=== PATIENT | female | born 1935 | race Caucasian/White ===

== ENCOUNTER 2020-04-11 18:59 | Observation (INO) | payer MEDICARE, BC ==
[2020-04-11] MEDS ORDERED: Sodium Chloride 0.9% 10 ML Syringe FLUSH PRN (19:18)
[2020-04-11] MEDS ORDERED: Sodium Chloride 0.9% 2.5 ML Syringe FLUSH PRN (19:18)
[2020-04-11] MEDS ORDERED: Furosemide 40 MG/4 ML VIAL IVPUSH ONE (19:46)
--- NOTE | 2020-04-11 20:00 | CR ---
INDICATION: Shortness of breath TECHNIQUE: Chest radiograph 1 view COMPARISON: 03/24/2008 FINDINGS: Moderate degradation of image quality noted due to body habitus. Mediastinum: The mediastinum is normal in appearance. Mild cardiomegaly is present. Patient status post median sternotomy. Lung: Moderate diffuse reticulonodular infiltrates, and septal thickening noted bilaterally. Consolidation in the left lung base is noted with mild volume loss. Small bilateral pleural effusions are present. No pneumothorax is identified. Bone and Soft tissue: Neurostimulator leads are seen overlying the inferior thoracic spine. Left axillary dissection clips are noted without change. IMPRESSIONS: 1. Moderate diffuse reticulonodular infiltrates, and septal thickening noted bilaterally. Likely due to pulmonary edema. 2. Consolidation in the left lung base is noted with mild volume loss. These findings can be seen with atelectasis and/or pneumonia. 3. Small bilateral pleural effusions are present. Dictated by Parish Katz MD @ 04/11/2020 7:59:10 PM Dictated by: Parish Katz MD @ 04/11/2020 19:59:14 (Electronically Signed)
[2020-04-11 20:12] LABS: BLOOD UREA NITROGEN,BUN 21 mg/dL (7.0-18.0); CARBON DIOXIDE,CO2 27.7 mmol/L (21.0-32.0); CHLORIDE,CL 99 mmol/L (98-107); GLUCOSE RANDOM 170 mg/dL (74-106); LIPASE 92 U/L (73-393); POTASSIUM,K 3.7 mmol/L (3.5-5.1); SODIUM,NA 136 mmol/L (136-145)
--- NOTE | 2020-04-11 20:46 | EDM.PDOC ---
<Kameron Hairston - Last Filed: 04/12/20 06:46> ED HPI GENERAL MEDICAL PROBLEM - General Chief Complaint: Respiratory Problem Stated Complaint: SOB Time Seen by Provider: 04/11/20 19:18 - Related Data Allergies Allergy/AdvReac Type Severity Reaction Status Date / Time carbamazepine [From Tegretol] Allergy Rash Verified 04/12/20 01:16 Home Meds: Home Meds Calcium Carb, Citrate/Vit D3 [Citracal + D ER] 1 tab PO DAILY 11/01/14 [History] Levothyroxine Sodium [Synthroid] 100 mcg PO DAILY 11/01/14 [History] Losartan Potassium [Cozaar] 100 mg PO DAILY 11/01/14 [History] Magnesium 200 mg PO DAILY 11/01/14 [History] Metoprolol Tartrate 100 mg PO BID 11/01/14 [History] Multivitamin [Multivitamins] 1 tab PO DAILY 11/01/14 [History] Zolpidem Tartrate 10 mg PO BEDTIME PRN 11/01/14 [History] amLODIPine [Norvasc] 5 mg PO DAILY 11/01/14 [History] atorvaSTATin Calcium [Atorvastatin Calcium] 20 mg PO BEDTIME 11/01/14 [History] Bifidobacter. Bifidum/B.Longum [Florajen Bifidoblend] 460 mg PO DAILY 06/10/15 [History] Apixaban [Eliquis] 5 mg PO BID 04/12/20 [History] Cholecalciferol (Vitamin D3) [Vitamin D3] 1,000 unit PO DAILY 04/12/20 [History] Omeprazole 20 mg PO DAILY 04/12/20 [History] Zinc 50 mg PO DAILY 04/12/20 [History] Acetaminophen [Tylenol] 650 mg PO Q6H PRN tablet 04/14/20 [Rx] Chlorthalidone 12.5 mg PO DAILY 30 Days #14 tab 04/14/20 [Rx] Furosemide [Lasix] 40 mg PO DAILY 30 Days #30 tab 04/14/20 [Rx] Potassium Chloride [Klor-Con M20] 20 meq PO DAILY 30 Days #30 tab.er 04/14/20 [Rx] #1 Interpretation EKG Interpretation Comments: EKG: As interpreted by ER physician: Marika: Nonspecific ST-T wave abnormalities Left bundle branch block Left axis deviation No evidence of ST elevation NC Atrial fibrillation heart rate of 125 Departure - Departure Time of Disposition: 23:00 Disposition: Refer to Observation Clinical Impression: Pulmonary edema Qualifiers: Chronicity: acute Qualified Code(s): J81.0 - Acute pulmonary edema Respiratory failure with hypoxia Qualifiers: Chronicity: acute Qualified Code(s): J96.01 - Acute respiratory failure with hypoxia CHF (congestive heart failure) Qualifiers: Heart failure type: unspecified Heart failure chronicity: acute on chronic Qualified Code(s): I50.9 - Heart failure, unspecified - Discharge Information <Jaylin Tenorio - Last Filed: 04/15/20 10:24> ED HPI GENERAL MEDICAL PROBLEM - General Source of Information: Reports: Patient History Limitations: Reports: No Limitations - History of Present Illness INITIAL COMMENTS - FREE TEXT/NARRATIVE: HISTORY AND PHYSICAL: History of present illness: Patient is an 84-year-old female who presents emergency room today with concern of shortness of breath that began this morning at about 5 AM. Patient states that when she woke up at 5 AM this morning, she was having a harder time catching her breath. Patient states throughout the course of today, it has worsened so she called EMS to bring her to the emergency room. Patient states this happened about 3 to 4 weeks ago when she was a [place] and states that she was told "she has water around her heart "and states that she was sent home and increase the dose of her medication. Patient states she is unsure the name of the medication and what dose she is taking. Patient states she began having the same symptoms again today and her medication that she has been taking was not working. She states 3 to 4 weeks ago she was tested for Covid at that time and it was negative. Patient states she does have a history of thoracic and abdominal aortic aneurysm repair in 2007 and states that she has not had any complications following the surgery from this. Patient states she has a history of hypertension, atrial fibrillation, and hyperlipidemia. Patient denies fever, chills, chest pain, or cough. Denies headache, neck stiff ness, change in vision, syncope, or near syncope. Denies nausea, vomiting, abdominal pain, diarrhea, constipation, or dysuria. Has not noted any blood in urine or stool. Patient has been eating and drinking appropriately. Review of systems: As per history of present illness and below otherwise all systems reviewed and negative. Past medical history: As per history of present illness and as reviewed below otherwise no ncontributory. Surgical history: As per history of present illness and as reviewed below otherwise noncontributory. Social history: See social history for further information Family history: As per history of present illness and as reviewed below otherwise noncontributory. Physical exam: General: Patient is alert, oriented, and in respiratory distress. Patient tachypneic with use of accessory muscles for breathing, on 15L non-rebreather at bedside per EMS at 90%, HR 120s, bp 140s/80s. HEENT: Atraumatic, normocephalic, pupils equal and reactive bilaterally, negative for conjunctival pallor or scleral icterus, mucous membranes moist, TMs normal bilaterally, throat clear, neck supple, nontender, trachea midline. No drooling or trismus noted. No meningeal signs. No hot potato voice noted. Lungs: Course crackles throughout all lung hansen to auscultation, breath sounds equal bilaterally, chest nontender. Patient speaking 1-2 word sentences with breathlessness, no wheezing, no stridor, using accessory muscles in respiratory distress. Heart: Heart sounds limited due to lung sounds. Otherwise, S1S2, regular rate and rhythm without overt murmur Abdomen: Soft, nondistended, nontender. Negative for masses or hepatosplenomegaly. Negative for costovertebral tenderness. Pelvis: Stable nontender. Genitourinary: Deferred. Rectal: Deferred. Skin: Intact, warm, dry. No lesions or rashes noted. Extremities: 1+ bilateral pitting edema to the knees. Otherwise, atraumatic, negative for cords or calf pain. Neurovascular unremarkable. Neuro: Awake, alert, oriented. Cranial nerves II through XII unremarkable. Cerebellum unremarkable. Motor and sensory unremarkable throughout. Exam nonfocal. Notes: Upon initial exam, patient does appear to be in acute respiratory distress. She is 90% on 15 L nonrebreather. I did call the respiratory therapist to get BiPAP initiated. Respiratory therapist shortly at bedside with BiPAP machine. Upon reevaluation of patient on BIPAP, she is much more comfortable, tachypnea improved, oxygen 96% and HR 80bmp. I did call and speak to Dr. Cheng, hospitalist military professional, and thoroughly discussed patients case. Will admit to observation telemetry. Voices understanding and is agreeable to plan of care. Denies any further questions or concerns at this time. Diagnostics: EKG, CBC, CMP, UA, CXR, Trop, Chest/Abd/Pelvis chest ct w cont, lactate, blood cultures x 2, COVID/Flu, BNP Therapeutics: Saline lock, BIPAP, Lasix Impression: Respiratory failure with hypoxia Pulmonary edema Congestive Heart Failure exacerbation Plan: Admit to observation to Dr. Cheng Critical care time is exclusive of billable procedures and the time to perform these procedures. Critical care time was used to prevent vital system organ failure and deterioration. Critical care time includes bedside management and high-complexity decision making requiring my highest level of mental preparedness and attention. This includes reviewing the patient's chart and prior medical records, ordering and reviewing interpreting laboratory studies and imaging results, interpretation of vital signs and EKG, pulse oximetry, and discussion with the admitting team along with nursing staff. Patient presented with acute respiratory failure requiring immediate intervention requiring Bipap and transfer to the hospital for additional close monitoring and continuation of treatment CC Time: 30 minutes Definitive disposition and diagnosis as appropriate pending reevaluation and review of above. 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 ED EXAM, GENERAL - Physical Exam Exam: See Below (see dictation) Course - Vital Signs Last Recorded V/S: Last Vital Signs Temp 97.7 F 04/14/20 11:43 Pulse 83 04/14/20 11:43 Resp 20 04/14/20 11:43 BP 124/59 L 04/14/20 11:43 Pulse Ox 95 04/14/20 11:43 - Orders/Labs/Meds Labs: Laboratory Tests 04/11/20 04/11/20 04/11/20 Range/Units 19:30 19:30 19:30 WBC 9.89 (4.0-11.0) K/uL RBC 4.17 L (4.30-5.90) M/uL Hgb 12.1 (12.0-16.0) g/dL Hct 38.1 (36.0-46.0) % MCV 91.4 (80.0-98.0) fL MCH 29.0 (27.0-32.0) pg MCHC 31.8 (31.0-37.0) g/dL RDW Std Deviation 47.4 (28.0-62.0) fl RDW Coeff of José 14 (11.0-15.0) % Plt Count 217 (150-400) K/uL MPV 10.80 (7.40-12.00) fL Neut % (Auto) 59.9 (48.0-80.0) % Lymph % (Auto) 27.8 (16.0-40.0) % [place] % (Auto) 8.3 (0.0-15.0) % Eos % (Auto) 3.4 (0.0-7.0) % Baso % (Auto) 0.6 (0.0-1.5) % Neut # (Auto) 5.9 H (1.4-5.7) K/uL Lymph # (Auto) 2.8 H (0.6-2.4) K/uL [place] # (Auto) 0.8 (0.0-0.8) K/uL Eos # (Auto) 0.3 (0.0-0.7) K/uL Baso # (Auto) 0.1 (0.0-0.1) K/uL Nucleated RBC % 0.0 /100WBC Nucleated RBCs # 0 K/uL ABG pH (7.35-7.45) ABG pCO2 (35-45) mmHG ABG pO2 (75-100) mmHG ABG HCO3 (22-26) mEq/L ABG Total CO2 ABG Base Excess (-2.0-2.0) VBG pH (7.31-7.41) VBG pCO2 (35-45) mmHG VBG pO2 (30-40) mmHG VBG HCO3 (22-30) mEq/L VBG Total CO2 (41-51) mmol/L VBG Base Excess (-3.0-3.0) Lactate 1.3 (0.20-2.00) mmol/L Sodium 136 (136-145) mmol/L Potassium 3.7 (3.5-5.1) mmol/L Chloride 99 (98-107) mmol/L Carbon Dioxide 27.7 (21.0-32.0) mmol/L BUN 21 H (7.0-18.0) mg/dL Creatinine 1.2 H (0.6-1.0) mg/dL Est Cr Clr Drug Dosing 34.54 mL/min Estimated GFR (MDRD) 42.9 ml/min Glucose 170 H (74-106) mg/dL Calcium 9.1 (8.5-10.1) mg/dL Total Bilirubin 0.6 (0.2-1.0) mg/dL AST 23 (15-37) IU/L ALT 25 (14-63) IU/L Alkaline Phosphatase 118 H (46-116) U/L Troponin I < 0.050 (0.000-0.056) ng/mL B-Natriuretic Peptide (<100) PG/ML Total Protein 7.5 (6.4-8.2) g/dL Albumin 3.7 (3.4-5.0) g/dL Globulin 3.8 (2.6-4.0) g/dL Albumin/Globulin Ratio 1.0 (0.9-1.6) Lipase 92 (73-393) U/L Urine Color Urine Appearance Urine pH (5.0-8.0) Ur Specific [place] (1.001-1.035) Urine Protein (NEGATIVE) mg/dL Urine Glucose (UA) (NEGATIVE) mg/dL Urine Ketones (NEGATIVE) mg/dL Urine Occult Blood (NEGATIVE) Urine Nitrite (NEGATIVE) Urine Bilirubin (NEGATIVE) Urine Urobilinogen (<2.0) EU/dL Ur Leukocyte Esterase (NEGATIVE) Urine RBC (0-2/HPF) Urine WBC (0-5/HPF) Ur Epithelial Cells (NONE-FEW) Urine Bacteria (NEGATIVE) Urine Mucus (NONE-MOD) Influenza Type A RNA (NEGATIVE) Influenza Type B RNA (NEGATIVE) SARS-CoV-2 RNA (DINO) (NEGATIVE) 04/11/20 04/11/20 04/11/20 Range/Units 19:30 19:30 19:47 WBC (4.0-11.0) K/uL RBC (4.30-5.90) M/uL Hgb (12.0-16.0) g/dL Hct (36.0-46.0) % MCV (80.0-98.0) fL MCH (27.0-32.0) pg MCHC (31.0-37.0) g/dL RDW Std Deviation (28.0-62.0) fl RDW Coeff of José (11.0-15.0) % Plt Count (150-400) K/uL MPV (7.40-12.00) fL Neut % (Auto) (48.0-80.0) % Lymph % (Auto) (16.0-40.0) % [place] % (Auto) (0.0-15.0) % Eos % (Auto) (0.0-7.0) % Baso % (Auto) (0.0-1.5) % Neut # (Auto) (1.4-5.7) K/uL Lymph # (Auto) (0.6-2.4) K/uL [place] # (Auto) (0.0-0.8) K/uL Eos # (Auto) (0.0-0.7) K/uL Baso # (Auto) (0.0-0.1) K/uL Nucleated RBC % /100WBC Nucleated RBCs # K/uL ABG pH 7.405 (7.35-7.45) ABG pCO2 41 (35-45) mmHG ABG pO2 77 (75-100) mmHG ABG HCO3 26 (22-26) mEq/L ABG Total CO2 23.4 ABG Base Excess 0.8 (-2.0-2.0) VBG pH 7.35 (7.31-7.41) VBG pCO2 49 H (35-45) mmHG VBG pO2 41 H (30-40) mmHG VBG HCO3 27 (22-30) mEq/L VBG Total CO2 25 L (41-51) mmol/L VBG Base Excess 1.1 (-3.0-3.0) Lactate (0.20-2.00) mmol/L Sodium (136-145) mmol/L Potassium (3.5-5.1) mmol/L Chloride (98-107) mmol/L Carbon Dioxide (21.0-32.0) mmol/L BUN (7.0-18.0) mg/dL Creatinine (0.6-1.0) mg/dL Est Cr Clr Drug Dosing mL/min Estimated GFR (MDRD) ml/min Glucose (74-106) mg/dL Calcium (8.5-10.1) mg/dL Total Bilirubin (0.2-1.0) mg/dL AST (15-37) IU/L ALT (14-63) IU/L Alkaline Phosphatase (46-116) U/L Troponin I (0.000-0.056) ng/mL B-Natriuretic Peptide 1146 H (<100) PG/ML Total Protein (6.4-8.2) g/dL Albumin (3.4-5.0) g/dL Globulin (2.6-4.0) g/dL Albumin/Globulin Ratio (0.9-1.6) Lipase (73-393) U/L Urine Color Urine Appearance Urine pH (5.0-8.0) Ur Specific [place] (1.001-1.035) Urine Protein (NEGATIVE) mg/dL Urine Glucose (UA) (NEGATIVE) mg/dL Urine Ketones (NEGATIVE) mg/dL Urine Occult Blood (NEGATIVE) Urine Nitrite (NEGATIVE) Urine Bilirubin (NEGATIVE) Urine Urobilinogen (<2.0) EU/dL Ur Leukocyte Esterase (NEGATIVE) Urine RBC (0-2/HPF) Urine WBC (0-5/HPF) Ur Epithelial Cells (NONE-FEW) Urine Bacteria (NEGATIVE) Urine Mucus (NONE-MOD) Influenza Type A RNA (NEGATIVE) Influenza Type B RNA (NEGATIVE) SARS-CoV-2 RNA (DINO) (NEGATIVE) 04/11/20 04/11/20 Range/Units 21:19 21:30 WBC (4.0-11.0) K/uL RBC (4.30-5.90) M/uL Hgb (12.0-16.0) g/dL Hct (36.0-46.0) % MCV (80.0-98.0) fL MCH (27.0-32.0) pg MCHC (31.0-37.0) g/dL RDW Std Deviation (28.0-62.0) fl RDW Coeff of José (11.0-15.0) % Plt Count (150-400) K/uL MPV (7.40-12.00) fL Neut % (Auto) (48.0-80.0) % Lymph % (Auto) (16.0-40.0) % [place] % (Auto) (0.0-15.0) % Eos % (Auto) (0.0-7.0) % Baso % (Auto) (0.0-1.5) % Neut # (Auto) (1.4-5.7) K/uL Lymph # (Auto) (0.6-2.4) K/uL [place] # (Auto) (0.0-0.8) K/uL Eos # (Auto) (0.0-0.7) K/uL Baso # (Auto) (0.0-0.1) K/uL Nucleated RBC % /100WBC Nucleated RBCs # K/uL ABG pH (7.35-7.45) ABG pCO2 (35-45) mmHG ABG pO2 (75-100) mmHG ABG HCO3 (22-26) mEq/L ABG Total CO2 ABG Base Excess (-2.0-2.0) VBG pH (7.31-7.41) VBG pCO2 (35-45) mmHG VBG pO2 (30-40) mmHG VBG HCO3 (22-30) mEq/L VBG Total CO2 (41-51) mmol/L VBG Base Excess (-3.0-3.0) Lactate (0.20-2.00) mmol/L Sodium (136-145) mmol/L Potassium (3.5-5.1) mmol/L Chloride (98-107) mmol/L Carbon Dioxide (21.0-32.0) mmol/L BUN (7.0-18.0) mg/dL Creatinine (0.6-1.0) mg/dL Est Cr Clr Drug Dosing mL/min Estimated GFR (MDRD) ml/min Glucose (74-106) mg/dL Calcium (8.5-10.1) mg/dL Total Bilirubin (0.2-1.0) mg/dL AST (15-37) IU/L ALT (14-63) IU/L Alkaline Phosphatase (46-116) U/L Troponin I (0.000-0.056) ng/mL B-Natriuretic Peptide (<100) PG/ML Total Protein (6.4-8.2) g/dL Albumin (3.4-5.0) g/dL Globulin (2.6-4.0) g/dL Albumin/Globulin Ratio (0.9-1.6) Lipase (73-393) U/L Urine Color YELLOW Urine Appearance CLEAR Urine pH 6.0 (5.0-8.0) Ur Specific [place] 1.015 (1.001-1.035) Urine Protein 30 H (NEGATIVE) mg/dL Urine Glucose (UA) NEGATIVE (NEGATIVE) mg/dL Urine Ketones NEGATIVE (NEGATIVE) mg/dL Urine Occult Blood SMALL H (NEGATIVE) Urine Nitrite NEGATIVE (NEGATIVE) Urine Bilirubin NEGATIVE (NEGATIVE) Urine Urobilinogen 0.2 (<2.0) EU/dL Ur Leukocyte Esterase TRACE H (NEGATIVE) Urine RBC 0-1 (0-2/HPF) Urine WBC 0-3 (0-5/HPF) Ur Epithelial Cells RARE (NONE-FEW) Urine Bacteria FEW (NEGATIVE) Urine Mucus LIGHT (NONE-MOD) Influenza Type A RNA NEGATIVE (NEGATIVE) Influenza Type B RNA NEGATIVE (NEGATIVE) SARS-CoV-2 RNA (DINO) NEGATIVE (NEGATIVE) Meds: Medications Discontinued Medications Generic Name Dose Route Start Last Admin Trade Name Freq PRN Reason Stop Dose Admin Acetaminophen 650 mg 04/12/20 01:42 04/14/20 00:03 Tylenol PO 650 mg Q6H PRN Administration Pain Albuterol/Ipratropium 3 ml 04/12/20 01:40 Duoneb 3.0-0.5 Mg/3 Ml NEB Q4HRRT PRN Shortness of Breath Amlodipine Besylate 5 mg 04/13/20 09:00 04/14/20 08:50 Norvasc PO 5 mg DAILY BERT Administration Apixaban 5 mg 04/12/20 21:00 04/14/20 08:50 Eliquis PO 5 mg BID BERT Administration Diltiazem HCl 20 mg 04/12/20 21:46 Diltiazem IVPUSH Q4H PRN HR >120 Furosemide 40 mg 04/11/20 19:46 04/11/20 20:03 Lasix IVPUSH 04/11/20 19:47 40 mg NOW ONE Administration Furosemide 40 mg 04/12/20 04:00 04/14/20 06:59 Lasix IVPUSH 40 mg Q8HR BERT Administration Magnesium Sulfate 2 gm in 50 mls @ 100 mls/hr 04/12/20 09:00 04/12/20 09:56 Magnesium Sulfate In Water Premix IV 04/12/20 09:29 100 mls/hr ONETIME ONE Administration Iopamidol 50 ml 04/11/20 21:28 04/11/20 21:30 Isovue Multipack-370 (76%) IVPUSH 04/11/20 21:29 50 ml ONETIME STA Administration Levothyroxine Sodium 100 mcg 04/13/20 07:30 04/14/20 06:58 Synthroid PO 100 mcg ACBREAKFAST BERT Administration Losartan Potassium 100 mg 04/13/20 09:00 04/14/20 08:49 Cozaar PO 100 mg DAILY BERT Administration Metoprolol Tartrate 100 mg 04/12/20 21:00 04/14/20 08:49 Lopressor PO 100 mg BID BERT Administration Ondansetron HCl 4 mg 04/12/20 01:43 Zofran IVPUSH Q4H PRN Nausea/Vomiting Zolpidem Tartrate 10 1 each 04/12/20 12:07 Mg PO BEDTIME PRN Insomnia Potassium Chloride 20 meq 04/12/20 07:40 04/12/20 08:44 Klor-Con M20 PO 04/12/20 07:41 20 meq ONETIME ONE Administration Potassium Chloride 20 meq 04/13/20 08:03 04/13/20 08:25 Klor-Con M20 PO 04/13/20 08:04 20 meq ONETIME ONE Administration Potassium Chloride 40 meq 04/14/20 07:41 04/14/20 08:49 Klor-Con M20 PO 04/14/20 07:42 40 meq ONETIME ONE Administration Sodium Chloride 2.5 ml 04/11/20 19:18 04/11/20 19:45 Saline Flush FLUSH 2.5 ml ASDIRECTED PRN Administration Keep Vein Open Sodium Chloride 10 ml 04/11/20 19:18 04/11/20 19:44 Saline Flush FLUSH 10 ml ASDIRECTED PRN Administration Keep Vein Open Sepsis Event Note (ED) - Evaluation Sepsis Screening Result: No Definite Risk
[2020-04-11] MEDS ORDERED: Iopamidol 755 MG/ML 500 ML Multipack Bottle IVPUSH STA (21:28)
--- NOTE | 2020-04-11 22:01 | CT ---
Exam: CT angiography of the chest and abdomen with IV contrast. Clinical Information: History of aortic aneurysm repair. Comparison: CT angiography of the chest and abdomen dated 06/10/2015. Findings: Moderate-severe cardiomegaly, increased since 06/10/2015. Prominent central pulmonary arteries suggestive of elevated pulmonary pressures, as seen previously. No evidence of central pulmonary embolism. Postoperative changes of graft repair of the ascending thoracic through juxtarenal abdominal aorta. The reimplanted great vessels are widely patent. The reimplanted celiac artery, SMA, and left renal artery are widely patent. The reimplanted right renal artery is occluded with hypoperfusion to the right kidney, new since 06/10/2015. Normal caliber infrarenal abdominal aorta with diffuse peripheral calcifications. The RATNA is widely patent. Patent visualized bilateral iliac arteries with moderate atheromatous changes. Respiratory motion artifact limits detailed evaluation of the lungs. Bilateral bronchial wall and interlobular septal thickening with nodular ground-glass opacities in the right greater than left lower lungs consistent with pulmonary edema. The visualized lungs are otherwise clear. Small right and tiny left pleural effusions. The thyroid is not visualized and likely surgically absent. Multiple prominent enlarged mediastinal and right hilar lymph nodes are likely reactive. Respiratory motion limits detail evaluation of the abdomen. Cholecystectomy. Prominent extrahepatic bile ducts likely right postcholecystectomy reservoir effect. Multiple hepatic cysts. Cystic lesion in the pancreatic tail measuring 2.3 cm measured 8 mm on 06/10/2015. The spleen is anteriorly displaced with stable scarring in the lateral aspect. Low-density 3.0 cm lesion in the inferior pole of the right kidney measured 2.5 cm on 06/10/2015. The liver, pancreas, spleen, adrenals, and kidneys are otherwise unremarkable. Small esophageal hiatal hernia, as seen previously. Normal caliber visualized small bowel and colon. No lymphadenopathy in the abdomen. Sternotomy. Old bilateral rib fractures. Moderate degenerative changes throughout the visualized spine and pelvis. Spinal cord stimulator in the right back. Focal calcifications in the right breast should be benign. Impression: 1. Occluded reimplanted right renal artery with no appreciable enhancement of the kidney, new since 06/10/2015. 2. Otherwise stable postoperative changes of graft repair of the ascending thoracic through juxtarenal abdominal aorta. The reimplanted great vessels, celiac artery, SMA, and left renal artery are widely patent. 3. New changes of CHF with moderate-severe cardiomegaly, pulmonary edema, and small bilateral pleural effusions. 4. Multiple prominent enlarged mediastinal and right hilar lymph nodes are likely reactive. 5. Cystic lesion in the pancreatic tail measuring 2.3 cm measured 8 mm on 06/10/2015. Recommend pancreatic protocol CT or MRI in 2 years for follow-up. 6. Low-density 3.0 cm lesion in the inferior pole of the right kidney measured 2.5 cm on 06/10/2015. Recommend renal protection CT or MRI for further evaluation. 7. Small esophageal hiatal hernia Please note that all CT scans at this facility use dose modulation, iterative reconstruction, and/or weight-based dosing when appropriate to reduce radiation dose to as low as reasonably achievable. Dictated by Ricky Avila MD @ Apr 12 2020 11:50AM (Electronically Signed)
[2020-04-11 22:09] LABS: CORONAVIRUS COVID-19 NAA NEGATIVE (NEGATIVE); INFLUENZA A NAA NEGATIVE (NEGATIVE); INFLUENZA B NAA NEGATIVE (NEGATIVE)
[2020-04-12] MEDS ORDERED: Albuterol/Ipratropium 3.0-0.5 MG/3 ML Neb Soln NEB PRN (01:40)
[2020-04-12] MEDS ORDERED: Ondansetron 4 MG/2 ML SDV IVPUSH PRN (01:43)
[2020-04-12] MEDS: Furosemide 40 MG/4 ML VIAL IVPUSH SCH ×4 (04:00→21:51)
[2020-04-12 05:55] LABS: CARBON DIOXIDE,CO2 28.7 mmol/L (21.0-32.0); POTASSIUM,K 3.4 mmol/L (3.5-5.1)
[2020-04-12] MEDS ORDERED: Magnesium Sulfate (4.06 MEQ/ML) 1 GM/2 ML SDV IV ONE (07:38)
[2020-04-12] MEDS ORDERED: Potassium Chloride 20 MEQ Tab.ER PO ONE (07:40)
--- NOTE | 2020-04-12 07:40 | PCM.HP.2 ---
<Reina Duff - Last Filed: 04/12/20 12:12> H&P History of Present Illness - General Date of Service: 04/12/20 Admit Problem/Dx: Admission Diagnosis/Problem Admission Diagnosis/Problem Pulmonary edema cardiac cause Source of Information: Patient History Limitations: Reports: No Limitations - History of Present Illness Initial Comments - Free Text/Narative: Patient is a 84-year-old female with a significant past medical history of atrial fibrillation, hypertension, hyperlipidemia status post abdominal aortic aneurysm repair in 2007; presenting in the a.m. secondary to increasing dyspnea especially in the supine position and with exertion x 3-4 days. Patient was brought to the ED via EMS. Endorses having some fluid around her heart at 3 to 4 weeks prior and being seen by cardiology (in [place]) with titration of her medication. Patient however cannot recall which medication was changed or added since then. Patient however does state that she is compliant with her medication and has not had any other significant issues. ED course: Dyspnea with oxygen saturation as low as 86%; patient was started on BiPAP and weaned off around 4 AM switching over to nasal cannula now requiring 3 to 4 L. Patient was also provided a one-time dose of 40 mg Lasix and was monitored. EKG showed: Left bundle branch block with left axis deviation without any ST elevation or depression. Patient was in atrial fibrillation with a heart rate of 125. Patient refused catheterization Duo nebs initiated. Bedside: Patient is stating feeling significantly better after having provided DuoNeb treatments with Lasix. Patient was able to put out 1500 L of urine and states her breathing has improved. Patient otherwise has not having any significant pain or discomfort. - Related Data Allergies/Adverse Reactions: Allergies Allergy/AdvReac Type Severity Reaction Status Date / Time carbamazepine [From Tegretol] Allergy Rash Verified 04/12/20 01:16 Home Medications: Home Meds Calcium Carb, Citrate/Vit D3 [Citracal + D ER] 1 tab PO DAILY 11/01/14 [History] Chlorthalidone 25 mg PO DAILY 11/01/14 [History] Levothyroxine Sodium [Synthroid] 100 mcg PO DAILY 11/01/14 [History] Losartan Potassium [Cozaar] 100 mg PO DAILY 11/01/14 [History] Magnesium 200 mg PO DAILY 11/01/14 [History] Metoprolol Tartrate 100 mg PO BID 11/01/14 [History] Multivitamin [Multivitamins] 1 tab PO DAILY 11/01/14 [History] Zolpidem Tartrate 10 mg PO BEDTIME PRN 11/01/14 [History] amLODIPine [Norvasc] 5 mg PO DAILY 11/01/14 [History] atorvaSTATin Calcium [Atorvastatin Calcium] 20 mg PO BEDTIME 11/01/14 [History] Bifidobacter. Bifidum/B.Longum [Florajen Bifidoblend] 460 mg PO DAILY 06/10/15 [History] Propylene Glycol/Peg 400 [Systane 0.3-0.4% Eye Drops] 1 drop PO DAILY 04/11/20 [History] Apixaban [Eliquis] 5 mg PO BID 04/12/20 [History] Cholecalciferol (Vitamin D3) [Vitamin D3] 1,000 unit PO DAILY 04/12/20 [History] Furosemide 20 mg PO DAILY 04/12/20 [History] Omeprazole 20 mg PO DAILY 04/12/20 [History] Potassium Chloride [Klor-Con 10] 10 meq PO DAILY 04/12/20 [History] Zinc 50 mg PO DAILY 04/12/20 [History] Past Medical History Other HEENT History: wears glasses, and top and bottom dentures Cardiovascular History: Reports: High Cholesterol, Hypertension Other Cardiovascular History: "fluid around heart" Musculoskeletal History: Reports: Back Pain, Chronic Endocrine/Metabolic History: Reports: Hypothyroidism - Past Surgical History HEENT Surgical History: Reports: Adenoidectomy, Tonsillectomy Cardiovascular Surgical History: Reports: AAA Repair, Aneurysm, Other (See Below) Other Cardiovascular Surgeries/Procedures: 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, [facility] Surgical History: Reports: Cholecystectomy Female Surgical History: Reports: Hysterectomy, Oophorectomy, Salpingo- Oophorectomy Endocrine Surgical History: Reports: Thyroidectomy Social & Family History - Family History Family Medical History: No Pertinent Family History - Tobacco Use Tobacco Use Status *Q: Never Tobacco User - Caffeine Use Caffeine Use: Reports: Coffee - Recreational Drug Use Recreational Drug Use: No H&P Review of Systems - Review of Systems: Review Of Systems: See Below General: Reports: No Symptoms HEENT: Reports: No Symptoms Pulmonary: Reports: Shortness of Breath. Denies: Wheezing, Cough, Sputum Cardiovascular: Reports: Dyspnea on Exertion, Orthopnea. Denies: Chest Pain, Palpitations Gastrointestinal: Reports: No Symptoms Genitourinary: Reports: No Symptoms Musculoskeletal: Reports: No Symptoms Skin: Reports: No Symptoms Psychiatric: Reports: No Symptoms Neurological: Denies: Confusion, Dizziness, Headache Hematologic/Lymphatic: Reports: Easy Bleeding Exam - Exam Exam: See Below - Vital Signs Vital Signs: Last Vital Signs Temp 98.5 F 04/12/20 03:19 Pulse 110 H 04/12/20 03:19 Resp 18 04/12/20 03:19 BP 142/78 H 04/12/20 03:19 Pulse Ox 93 L 04/12/20 04:56 Weight: 84.1 kg - Exam Quality Assessment: Supplemental Oxygen General: Alert, Oriented, Cooperative HEENT: EOMI Lungs: Other (b/l crackles ; right > left ) Cardiovascular: Regular Rate, Irregular Rhythm GI/Abdominal Exam: Soft, Non-Tender Extremities: Normal Range of Motion, Other (trace pitting edema /l.e ) Skin: Warm Neurological: Cranial Nerves Intact Neuro Extensive - Mental Status: Alert, Oriented x3 Neuro Extensive - Motor, Sensory, Reflexes: Normal Gait Psychiatric: Alert, Normal Affect - Patient Data Lab Results Last 24 hrs: Laboratory Results - last 24 hr 04/11/20 04/11/20 04/11/20 Range/Units 19:30 19:30 19:30 WBC 9.89 (4.0-11.0) K/uL RBC 4.17 L (4.30-5.90) M/uL Hgb 12.1 (12.0-16.0) g/dL Hct 38.1 (36.0-46.0) % MCV 91.4 (80.0-98.0) fL MCH 29.0 (27.0-32.0) pg MCHC 31.8 (31.0-37.0) g/dL RDW Std Deviation 47.4 (28.0-62.0) fl RDW Coeff of José 14 (11.0-15.0) % Plt Count 217 (150-400) K/uL MPV 10.80 (7.40-12.00) fL Neut % (Auto) 59.9 (48.0-80.0) % Lymph % (Auto) 27.8 (16.0-40.0) % [place] % (Auto) 8.3 (0.0-15.0) % Eos % (Auto) 3.4 (0.0-7.0) % Baso % (Auto) 0.6 (0.0-1.5) % Neut # (Auto) 5.9 H (1.4-5.7) K/uL Lymph # (Auto) 2.8 H (0.6-2.4) K/uL [place] # (Auto) 0.8 (0.0-0.8) K/uL Eos # (Auto) 0.3 (0.0-0.7) K/uL Baso # (Auto) 0.1 (0.0-0.1) K/uL Nucleated RBC % 0.0 /100WBC Nucleated RBCs # 0 K/uL ABG pH (7.35-7.45) ABG pCO2 (35-45) mmHG ABG pO2 (75-100) mmHG ABG HCO3 (22-26) mEq/L ABG Total CO2 ABG Base Excess (-2.0-2.0) VBG pH (7.31-7.41) VBG pCO2 (35-45) mmHG VBG pO2 (30-40) mmHG VBG HCO3 (22-30) mEq/L VBG Total CO2 (41-51) mmol/L VBG Base Excess (-3.0-3.0) Lactate 1.3 (0.20-2.00) mmol/L Sodium 136 (136-145) mmol/L Potassium 3.7 (3.5-5.1) mmol/L Chloride 99 (98-107) mmol/L Carbon Dioxide 27.7 (21.0-32.0) mmol/L BUN 21 H (7.0-18.0) mg/dL Creatinine 1.2 H (0.6-1.0) mg/dL Est Cr Clr Drug Dosing 34.54 mL/min Estimated GFR (MDRD) 42.9 ml/min Glucose 170 H (74-106) mg/dL Calcium 9.1 (8.5-10.1) mg/dL Phosphorus (2.6-4.7) mg/dL Magnesium (1.8-2.4) mg/dL Total Bilirubin 0.6 (0.2-1.0) mg/dL AST 23 (15-37) IU/L ALT 25 (14-63) IU/L Alkaline Phosphatase 118 H (46-116) U/L Troponin I < 0.050 (0.000-0.056) ng/mL B-Natriuretic Peptide (<100) PG/ML Total Protein 7.5 (6.4-8.2) g/dL Albumin 3.7 (3.4-5.0) g/dL Globulin 3.8 (2.6-4.0) g/dL Albumin/Globulin Ratio 1.0 (0.9-1.6) Lipase 92 (73-393) U/L Urine Color Urine Appearance Urine pH (5.0-8.0) Ur Specific [place] (1.001-1.035) Urine Protein (NEGATIVE) mg/dL Urine Glucose (UA) (NEGATIVE) mg/dL Urine Ketones (NEGATIVE) mg/dL Urine Occult Blood (NEGATIVE) Urine Nitrite (NEGATIVE) Urine Bilirubin (NEGATIVE) Urine Urobilinogen (<2.0) EU/dL Ur Leukocyte Esterase (NEGATIVE) Urine RBC (0-2/HPF) Urine WBC (0-5/HPF) Ur Epithelial Cells (NONE-FEW) Urine Bacteria (NEGATIVE) Urine Mucus (NONE-MOD) Influenza Type A RNA (NEGATIVE) Influenza Type B RNA (NEGATIVE) SARS-CoV-2 RNA (DINO) (NEGATIVE) 04/11/20 04/11/20 04/11/20 Range/Units 19:30 19:30 19:47 WBC (4.0-11.0) K/uL RBC (4.30-5.90) M/uL Hgb (12.0-16.0) g/dL Hct (36.0-46.0) % MCV (80.0-98.0) fL MCH (27.0-32.0) pg MCHC (31.0-37.0) g/dL RDW Std Deviation (28.0-62.0) fl RDW Coeff of José (11.0-15.0) % Plt Count (150-400) K/uL MPV (7.40-12.00) fL Neut % (Auto) (48.0-80.0) % Lymph % (Auto) (16.0-40.0) % [place] % (Auto) (0.0-15.0) % Eos % (Auto) (0.0-7.0) % Baso % (Auto) (0.0-1.5) % Neut # (Auto) (1.4-5.7) K/uL Lymph # (Auto) (0.6-2.4) K/uL [place] # (Auto) (0.0-0.8) K/uL Eos # (Auto) (0.0-0.7) K/uL Baso # (Auto) (0.0-0.1) K/uL Nucleated RBC % /100WBC Nucleated RBCs # K/uL ABG pH 7.405 (7.35-7.45) ABG pCO2 41 (35-45) mmHG ABG pO2 77 (75-100) mmHG ABG HCO3 26 (22-26) mEq/L ABG Total CO2 23.4 ABG Base Excess 0.8 (-2.0-2.0) VBG pH 7.35 (7.31-7.41) VBG pCO2 49 H (35-45) mmHG VBG pO2 41 H (30-40) mmHG VBG HCO3 27 (22-30) mEq/L VBG Total CO2 25 L (41-51) mmol/L VBG Base Excess 1.1 (-3.0-3.0) Lactate (0.20-2.00) mmol/L Sodium (136-145) mmol/L Potassium (3.5-5.1) mmol/L Chloride (98-107) mmol/L Carbon Dioxide (21.0-32.0) mmol/L BUN (7.0-18.0) mg/dL Creatinine (0.6-1.0) mg/dL Est Cr Clr Drug Dosing mL/min Estimated GFR (MDRD) ml/min Glucose (74-106) mg/dL Calcium (8.5-10.1) mg/dL Phosphorus (2.6-4.7) mg/dL Magnesium (1.8-2.4) mg/dL Total Bilirubin (0.2-1.0) mg/dL AST (15-37) IU/L ALT (14-63) IU/L Alkaline Phosphatase (46-116) U/L Troponin I (0.000-0.056) ng/mL B-Natriuretic Peptide 1146 H (<100) PG/ML Total Protein (6.4-8.2) g/dL Albumin (3.4-5.0) g/dL Globulin (2.6-4.0) g/dL Albumin/Globulin Ratio (0.9-1.6) Lipase (73-393) U/L Urine Color Urine Appearance Urine pH (5.0-8.0) Ur Specific [place] (1.001-1.035) Urine Protein (NEGATIVE) mg/dL Urine Glucose (UA) (NEGATIVE) mg/dL Urine Ketones (NEGATIVE) mg/dL Urine Occult Blood (NEGATIVE) Urine Nitrite (NEGATIVE) Urine Bilirubin (NEGATIVE) Urine Urobilinogen (<2.0) EU/dL Ur Leukocyte Esterase (NEGATIVE) Urine RBC (0-2/HPF) Urine WBC (0-5/HPF) Ur Epithelial Cells (NONE-FEW) Urine Bacteria (NEGATIVE) Urine Mucus (NONE-MOD) Influenza Type A RNA (NEGATIVE) Influenza Type B RNA (NEGATIVE) SARS-CoV-2 RNA (DINO) (NEGATIVE) 04/11/20 04/11/20 04/12/20 Range/Units 21:19 21:30 04:52 WBC 8.23 (4.0-11.0) K/uL RBC 3.89 L (4.30-5.90) M/uL Hgb 11.2 L (12.0-16.0) g/dL Hct 35.2 L (36.0-46.0) % MCV 90.5 (80.0-98.0) fL MCH 28.8 (27.0-32.0) pg MCHC 31.8 (31.0-37.0) g/dL RDW Std Deviation 46.6 (28.0-62.0) fl RDW Coeff of José 14 (11.0-15.0) % Plt Count 193 (150-400) K/uL MPV 11.00 (7.40-12.00) fL Neut % (Auto) 61.3 (48.0-80.0) % Lymph % (Auto) 27.5 (16.0-40.0) % [place] % (Auto) 10.2 (0.0-15.0) % Eos % (Auto) 0.6 (0.0-7.0) % Baso % (Auto) 0.4 (0.0-1.5) % Neut # (Auto) 5.1 (1.4-5.7) K/uL Lymph # (Auto) 2.3 (0.6-2.4) K/uL [place] # (Auto) 0.8 (0.0-0.8) K/uL Eos # (Auto) 0.1 (0.0-0.7) K/uL Baso # (Auto) 0.0 (0.0-0.1) K/uL Nucleated RBC % 0.0 /100WBC Nucleated RBCs # 0 K/uL ABG pH (7.35-7.45) ABG pCO2 (35-45) mmHG ABG pO2 (75-100) mmHG ABG HCO3 (22-26) mEq/L ABG Total CO2 ABG Base Excess (-2.0-2.0) VBG pH (7.31-7.41) VBG pCO2 (35-45) mmHG VBG pO2 (30-40) mmHG VBG HCO3 (22-30) mEq/L VBG Total CO2 (41-51) mmol/L VBG Base Excess (-3.0-3.0) Lactate (0.20-2.00) mmol/L Sodium (136-145) mmol/L Potassium (3.5-5.1) mmol/L Chloride (98-107) mmol/L Carbon Dioxide (21.0-32.0) mmol/L BUN (7.0-18.0) mg/dL Creatinine (0.6-1.0) mg/dL Est Cr Clr Drug Dosing mL/min Estimated GFR (MDRD) ml/min Glucose (74-106) mg/dL Calcium (8.5-10.1) mg/dL Phosphorus (2.6-4.7) mg/dL Magnesium (1.8-2.4) mg/dL Total Bilirubin (0.2-1.0) mg/dL AST (15-37) IU/L ALT (14-63) IU/L Alkaline Phosphatase (46-116) U/L Troponin I (0.000-0.056) ng/mL B-Natriuretic Peptide (<100) PG/ML Total Protein (6.4-8.2) g/dL Albumin (3.4-5.0) g/dL Globulin (2.6-4.0) g/dL Albumin/Globulin Ratio (0.9-1.6) Lipase (73-393) U/L Urine Color YELLOW Urine Appearance CLEAR Urine pH 6.0 (5.0-8.0) Ur Specific [place] 1.015 (1.001-1.035) Urine Protein 30 H (NEGATIVE) mg/dL Urine Glucose (UA) NEGATIVE (NEGATIVE) mg/dL Urine Ketones NEGATIVE (NEGATIVE) mg/dL Urine Occult Blood SMALL H (NEGATIVE) Urine Nitrite NEGATIVE (NEGATIVE) Urine Bilirubin NEGATIVE (NEGATIVE) Urine Urobilinogen 0.2 (<2.0) EU/dL Ur Leukocyte Esterase TRACE H (NEGATIVE) Urine RBC 0-1 (0-2/HPF) Urine WBC 0-3 (0-5/HPF) Ur Epithelial Cells RARE (NONE-FEW) Urine Bacteria FEW (NEGATIVE) Urine Mucus LIGHT (NONE-MOD) Influenza Type A RNA NEGATIVE (NEGATIVE) Influenza Type B RNA NEGATIVE (NEGATIVE) SARS-CoV-2 RNA (DINO) NEGATIVE (NEGATIVE) 04/12/20 Range/Units 04:52 WBC (4.0-11.0) K/uL RBC (4.30-5.90) M/uL Hgb (12.0-16.0) g/dL Hct (36.0-46.0) % MCV (80.0-98.0) fL MCH (27.0-32.0) pg MCHC (31.0-37.0) g/dL RDW Std Deviation (28.0-62.0) fl RDW Coeff of José (11.0-15.0) % Plt Count (150-400) K/uL MPV (7.40-12.00) fL Neut % (Auto) (48.0-80.0) % Lymph % (Auto) (16.0-40.0) % [place] % (Auto) (0.0-15.0) % Eos % (Auto) (0.0-7.0) % Baso % (Auto) (0.0-1.5) % Neut # (Auto) (1.4-5.7) K/uL Lymph # (Auto) (0.6-2.4) K/uL [place] # (Auto) (0.0-0.8) K/uL Eos # (Auto) (0.0-0.7) K/uL Baso # (Auto) (0.0-0.1) K/uL Nucleated RBC % /100WBC Nucleated RBCs # K/uL ABG pH (7.35-7.45) ABG pCO2 (35-45) mmHG ABG pO2 (75-100) mmHG ABG HCO3 (22-26) mEq/L ABG Total CO2 ABG Base Excess (-2.0-2.0) VBG pH (7.31-7.41) VBG pCO2 (35-45) mmHG VBG pO2 (30-40) mmHG VBG HCO3 (22-30) mEq/L VBG Total CO2 (41-51) mmol/L VBG Base Excess (-3.0-3.0) Lactate (0.20-2.00) mmol/L Sodium 138 (136-145) mmol/L Potassium 3.4 L (3.5-5.1) mmol/L Chloride 99 (98-107) mmol/L Carbon Dioxide 28.7 (21.0-32.0) mmol/L BUN 19 H (7.0-18.0) mg/dL Creatinine 1.2 H (0.6-1.0) mg/dL Est Cr Clr Drug Dosing 34.54 mL/min Estimated GFR (MDRD) 42.9 ml/min Glucose 100 (74-106) mg/dL Calcium 9.1 (8.5-10.1) mg/dL Phosphorus 3.7 (2.6-4.7) mg/dL Magnesium 1.6 L (1.8-2.4) mg/dL Total Bilirubin (0.2-1.0) mg/dL AST (15-37) IU/L ALT (14-63) IU/L Alkaline Phosphatase (46-116) U/L Troponin I (0.000-0.056) ng/mL B-Natriuretic Peptide (<100) PG/ML Total Protein (6.4-8.2) g/dL Albumin (3.4-5.0) g/dL Globulin (2.6-4.0) g/dL Albumin/Globulin Ratio (0.9-1.6) Lipase (73-393) U/L Urine Color Urine Appearance Urine pH (5.0-8.0) Ur Specific [place] (1.001-1.035) Urine Protein (NEGATIVE) mg/dL Urine Glucose (UA) (NEGATIVE) mg/dL Urine Ketones (NEGATIVE) mg/dL Urine Occult Blood (NEGATIVE) Urine Nitrite (NEGATIVE) Urine Bilirubin (NEGATIVE) Urine Urobilinogen (<2.0) EU/dL Ur Leukocyte Esterase (NEGATIVE) Urine RBC (0-2/HPF) Urine WBC (0-5/HPF) Ur Epithelial Cells (NONE-FEW) Urine Bacteria (NEGATIVE) Urine Mucus (NONE-MOD) Influenza Type A RNA (NEGATIVE) Influenza Type B RNA (NEGATIVE) SARS-CoV-2 RNA (DINO) (NEGATIVE) Result Diagrams: 04/12/20 04:52 04/12/20 04:52 Tristan Results Last 24 hrs: Microbiology 04/11/20 19:47 Anaerobic Blood Culture - Final Blood - Venous - Lab Draw Sepsis Event Note - Evaluation Sepsis Screening Result: No Definite Risk - Focused Exam Vital Signs: Vital Signs Temp Pulse Resp BP Pulse Ox 04/12/20 04:56 93 L 04/12/20 03:19 98.5 F 110 H 18 142/78 H 93 L 04/12/20 00:39 97.8 F 96 18 137/62 96 04/12/20 00:12 77 18 135/69 96 04/11/20 23:30 95 20 138/77 95 04/11/20 22:18 95 27 H 143/86 H 96 04/11/20 21:40 116 H 25 H 139/68 92 L 04/11/20 20:59 97.6 F 117 H 28 H 156/82 H 96 04/11/20 20:15 94 25 H 137/81 95 04/11/20 19:58 88 27 H 144/100 H 96 Problem List Initiated/Reviewed/Updated: Yes Orders Last 24hrs: Active Orders 24 hr Category Date Time Status Patient Status [ADT] Routine ADT 04/11/20 23:03 Active Antiembolic Devices [RC] PER UNIT ROUTINE Care 04/12/20 01:43 Active Cardiac Monitoring [RC] . DIRECTED Care 04/11/20 19:18 Active Communication Order [RC] PER UNIT ROUTINE Care 04/12/20 01:46 Active EKG Documentation Completion [RC] STAT Care 04/11/20 19:18 Active Shin Catheter Insertion [Insert Urinary Catheter] [OM. Care 04/12/20 01:45 Ordered PC] Q24H Height and Weight [RC] DAILY Care 04/12/20 07:38 Ordered Intake and Output Strict [RC] ASDIRECTED Care 04/12/20 07:38 Ordered Oxygen Therapy [RC] ASDIRECTED Care 04/12/20 01:45 Active Pulse Oximetry [RC] ASDIRECTED Care 04/12/20 01:44 Active RT Aerosol Therapy [RC] ASDIRECTED Care 04/12/20 01:42 Active RT BiPAP/CPAP [RC] ASDIRECTED Care 04/11/20 19:39 Active Telemetry Monitoring [Cardiac Monitoring] [RC] Q8H Care 04/11/20 23:16 Active Urinary Catheter Assessment [RC] ASDIRECTED Care 04/12/20 01:44 Active Vital Signs [RC] Q4H Care 04/12/20 01:38 Active Heart Healthy Diet [DIET] Diet 04/12/20 Breakfast Active Ang Chest [CT] Stat Exams 04/11/20 19:27 Taken CULTURE BLOOD [BC] Stat Lab 04/11/20 19:30 Received CULTURE BLOOD [BC] Stat Lab 04/11/20 19:47 Results CULTURE URINE [RM] Stat Lab 04/11/20 21:30 Received Acetaminophen [TylenoL] Med 04/12/20 01:42 Active 650 mg PO Q6H PRN Albuterol/Ipratropium [DuoNeb 3.0-0.5 MG/3 ML] Med 04/12/20 01:40 Active 3 ml NEB Q4HRRT PRN Furosemide [Lasix] Med 04/12/20 04:00 Active 40 mg IVPUSH Q8HR Ondansetron [Zofran] Med 04/12/20 01:43 Active 4 mg IVPUSH Q4H PRN Potassium Chloride [Klor-Con M20] Med 04/12/20 07:40 Once 20 meq PO ONETIME ONE Sodium Chloride 0.9% [Saline Flush] Med 04/11/20 19:18 Active 10 ml FLUSH ASDIRECTED PRN Sodium Chloride 0.9% [Saline Flush] Med 04/11/20 19:18 Active 2.5 ml FLUSH ASDIRECTED PRN Blood Culture x2 Reflex Set [OM.PC] Stat Oth 04/11/20 19:34 Ordered SCD [Sequential Compression Device] [OM.PC] Routine Oth 04/12/20 01:43 Ordered Saline Lock Insert [OM.PC] Stat Oth 04/11/20 19:18 Ordered Medication Orders Acetaminophen (Tylenol) 650 mg PO Q6H PRN PRN Reason: Pain Albuterol/Ipratropium (Duoneb 3.0-0.5 Mg/3 Ml) 3 ml NEB Q4HRRT PRN PRN Reason: Shortness of Breath Furosemide (Lasix) 40 mg IVPUSH Q8HR BERT Last Admin: 04/12/20 05:03 Dose: Not Given Documented by: Admin: 04/12/20 04:00 Dose: 40 mg Documented by: IMELDA Ondansetron HCl (Zofran) 4 mg IVPUSH Q4H PRN PRN Reason: Nausea/Vomiting Sodium Chloride (Saline Flush) 2.5 ml FLUSH ASDIRECTED PRN PRN Reason: Keep Vein Open Last Admin: 04/11/20 19:45 Dose: 2.5 ml Documented by: FABRICIO Sodium Chloride (Saline Flush) 10 ml FLUSH ASDIRECTED PRN PRN Reason: Keep Vein Open Last Admin: 04/11/20 19:44 Dose: 10 ml Documented by: FABRICIO Assessment/Plan Comment:: Assessment: 1. CHF exacerbation 2. Acute hypoxic respiratory failure secondary to above 3. Past medical history of atrial fibrillation, hypertension, hyperlipidemia Abdominal aortic aneurysmal repair in 2007 Hypothyroidism 4. Hypokalemia 5. RADHA Plan Admit to observation. Full code. I's and O's strict. Daily weights. Heart healthy diet with low sodium. Fluid restriction of 1.8 L. 1. CHF exacerbation: Continue IV Lasix 40 mg 3 times daily continue fluid and sodium restriction. Daily weights. Monitor I's and O's strictly.; Patient has put 1.5 L since this a.m. with a moderate relief of her dyspnea. Still requiring oxygen we will continue to wean as needed. No longer requiring BiPAP. BNP 1146 Follow up on Bcx, urine culture : currently afebrile and responding well to diuresis 2. 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 3. Hypokalemia; 20 mEq provided; recheck BMP in a.m. tomorrow 4. AFIB: continue Metoprolol/ Eliquis. Check TSH. Continue telemetry monitoring 5. Hold Chlorthalidone unless needed : e.g: poor urine output /BP issues 6. Replete w. 20 meq potassium . Recheck CBC/BMP in AM 7. RADHA: recheck BMP in AM <Alvaro Cheng - Last Filed: 04/12/20 20:47> H&P History of Present Illness - General Admit Problem/Dx: Admission Diagnosis/Problem Admission Diagnosis/Problem Pulmonary edema cardiac cause Exam - Vital Signs Vital Signs: Last Vital Signs Temp 36.4 C 04/12/20 20:09 Pulse 120 H 04/12/20 20:09 Resp 18 04/12/20 20:09 BP 141/63 H 04/12/20 20:09 Pulse Ox 97 04/12/20 20:09 - Patient Data Lab Results Last 24 hrs: Laboratory Results - last 24 hr 04/11/20 04/11/20 04/11/20 Range/Units 19:30 21:19 21:30 WBC (4.0-11.0) K/uL RBC (4.30-5.90) M/uL Hgb (12.0-16.0) g/dL Hct (36.0-46.0) % MCV (80.0-98.0) fL MCH (27.0-32.0) pg MCHC (31.0-37.0) g/dL RDW Std Deviation (28.0-62.0) fl RDW Coeff of José (11.0-15.0) % Plt Count (150-400) K/uL MPV (7.40-12.00) fL Neut % (Auto) (48.0-80.0) % Lymph % (Auto) (16.0-40.0) % [place] % (Auto) (0.0-15.0) % Eos % (Auto) (0.0-7.0) % Baso % (Auto) (0.0-1.5) % Neut # (Auto) (1.4-5.7) K/uL Lymph # (Auto) (0.6-2.4) K/uL [place] # (Auto) (0.0-0.8) K/uL Eos # (Auto) (0.0-0.7) K/uL Baso # (Auto) (0.0-0.1) K/uL Nucleated RBC % /100WBC Nucleated RBCs # K/uL Sodium (136-145) mmol/L Potassium (3.5-5.1) mmol/L Chloride (98-107) mmol/L Carbon Dioxide (21.0-32.0) mmol/L BUN (7.0-18.0) mg/dL Creatinine (0.6-1.0) mg/dL Est Cr Clr Drug Dosing mL/min Estimated GFR (MDRD) ml/min Glucose (74-106) mg/dL Calcium (8.5-10.1) mg/dL Phosphorus (2.6-4.7) mg/dL Magnesium (1.8-2.4) mg/dL B-Natriuretic Peptide 1146 H (<100) PG/ML TSH 3rd Generation (0.36-3.74) uIU/mL Urine Color YELLOW Urine Appearance CLEAR Urine pH 6.0 (5.0-8.0) Ur Specific [place] 1.015 (1.001-1.035) Urine Protein 30 H (NEGATIVE) mg/dL Urine Glucose (UA) NEGATIVE (NEGATIVE) mg/dL Urine Ketones NEGATIVE (NEGATIVE) mg/dL Urine Occult Blood SMALL H (NEGATIVE) Urine Nitrite NEGATIVE (NEGATIVE) Urine Bilirubin NEGATIVE (NEGATIVE) Urine Urobilinogen 0.2 (<2.0) EU/dL Ur Leukocyte Esterase TRACE H (NEGATIVE) Urine RBC 0-1 (0-2/HPF) Urine WBC 0-3 (0-5/HPF) Ur Epithelial Cells RARE (NONE-FEW) Urine Bacteria FEW (NEGATIVE) Urine Mucus LIGHT (NONE-MOD) Influenza Type A RNA NEGATIVE (NEGATIVE) Influenza Type B RNA NEGATIVE (NEGATIVE) SARS-CoV-2 RNA (DINO) NEGATIVE (NEGATIVE) 04/12/20 04/12/20 04/12/20 Range/Units 04:52 04:52 04:52 WBC 8.23 (4.0-11.0) K/uL RBC 3.89 L (4.30-5.90) M/uL Hgb 11.2 L (12.0-16.0) g/dL Hct 35.2 L (36.0-46.0) % MCV 90.5 (80.0-98.0) fL MCH 28.8 (27.0-32.0) pg MCHC 31.8 (31.0-37.0) g/dL RDW Std Deviation 46.6 (28.0-62.0) fl RDW Coeff of José 14 (11.0-15.0) % Plt Count 193 (150-400) K/uL MPV 11.00 (7.40-12.00) fL Neut % (Auto) 61.3 (48.0-80.0) % Lymph % (Auto) 27.5 (16.0-40.0) % [place] % (Auto) 10.2 (0.0-15.0) % Eos % (Auto) 0.6 (0.0-7.0) % Baso % (Auto) 0.4 (0.0-1.5) % Neut # (Auto) 5.1 (1.4-5.7) K/uL Lymph # (Auto) 2.3 (0.6-2.4) K/uL [place] # (Auto) 0.8 (0.0-0.8) K/uL Eos # (Auto) 0.1 (0.0-0.7) K/uL Baso # (Auto) 0.0 (0.0-0.1) K/uL Nucleated RBC % 0.0 /100WBC Nucleated RBCs # 0 K/uL Sodium 138 (136-145) mmol/L Potassium 3.4 L (3.5-5.1) mmol/L Chloride 99 (98-107) mmol/L Carbon Dioxide 28.7 (21.0-32.0) mmol/L BUN 19 H (7.0-18.0) mg/dL Creatinine 1.2 H (0.6-1.0) mg/dL Est Cr Clr Drug Dosing 34.54 mL/min Estimated GFR (MDRD) 42.9 ml/min Glucose 100 (74-106) mg/dL Calcium 9.1 (8.5-10.1) mg/dL Phosphorus 3.7 (2.6-4.7) mg/dL Magnesium 1.6 L (1.8-2.4) mg/dL B-Natriuretic Peptide (<100) PG/ML TSH 3rd Generation 2.33 (0.36-3.74) uIU/mL Urine Color Urine Appearance Urine pH (5.0-8.0) Ur Specific [place] (1.001-1.035) Urine Protein (NEGATIVE) mg/dL Urine Glucose (UA) (NEGATIVE) mg/dL Urine Ketones (NEGATIVE) mg/dL Urine Occult Blood (NEGATIVE) Urine Nitrite (NEGATIVE) Urine Bilirubin (NEGATIVE) Urine Urobilinogen (<2.0) EU/dL Ur Leukocyte Esterase (NEGATIVE) Urine RBC (0-2/HPF) Urine WBC (0-5/HPF) Ur Epithelial Cells (NONE-FEW) Urine Bacteria (NEGATIVE) Urine Mucus (NONE-MOD) Influenza Type A RNA (NEGATIVE) Influenza Type B RNA (NEGATIVE) SARS-CoV-2 RNA (DINO) (NEGATIVE) Result Diagrams: 04/12/20 04:52 04/12/20 04:52 [place] Results Last 24 hrs: Microbiology 04/11/20 19:47 Aerobic Blood Culture - Preliminary Blood - Venous - Lab Draw NO GROWTH AFTER 1 DAY Anaerobic Blood Culture - Final 04/11/20 19:30 Aerobic Blood Culture - Preliminary Blood - Venous NO GROWTH AFTER 1 DAY Anaerobic Blood Culture - Preliminary NO GROWTH AFTER 1 DAY Sepsis Event Note - Focused Exam Vital Signs: Vital Signs Temp Pulse Resp BP BP Pulse Ox 04/12/20 20:09 36.4 C 120 H 18 141/63 H 97 04/12/20 16:00 36.6 C 114 H 16 130/64 98 04/12/20 12:00 36.7 C 94 16 108/66 99 - Problem List (1) CHF (congestive heart failure) SNOMED Code(s): 44454916 ICD Code: I50.9 - HEART FAILURE, UNSPECIFIED Status: Acute Current Visit: Yes (2) Hypokalemia SNOMED Code(s): 74021128 ICD Code: E87.6 - HYPOKALEMIA Status: Acute Current Visit: Yes (3) RADHA (acute kidney injury) SNOMED Code(s): 07080387, 84400873 ICD Code: N17.9 - ACUTE KIDNEY FAILURE, UNSPECIFIED Status: Acute Current Visit: Yes (4) Pulmonary edema SNOMED Code(s): 40562963 ICD Code: J81.1 - CHRONIC PULMONARY EDEMA Status: Acute Current Visit: Y es (5) Respiratory failure with hypoxia SNOMED Code(s): 45002631455063993 ICD Code: J96.91 - RESPIRATORY FAILURE, UNSPECIFIED WITH HYPOXIA Status: Acute Current Visit: Yes (6) Status post AAA (abdominal aortic aneurysm) repair SNOMED Code(s): 121048966, 693208569 ICD Code: Z98.89 - OTHER SPECIFIED POSTPROCEDURAL STATES * DO NOT USE *; Z86.79 - PERSONAL HISTORY OF OTHER DISEASES OF THE CIRCULATORY SYSTEM Status: Acute Current Visit: No Orders Last 24hrs: Active Orders 24 hr Category Date Time Status Patient Status [ADT] Routine ADT 04/11/20 23:03 Active Antiembolic Devices [RC] PER UNIT ROUTINE Care 04/12/20 01:43 Active Communication Order [RC] PER UNIT ROUTINE Care 04/12/20 01:46 Active Height and Weight [RC] DAILY Care 04/12/20 07:38 Active Intake and Output Strict [RC] ASDIRECTED Care 04/12/20 07:38 Active Oxygen Therapy [RC] ASDIRECTED Care 04/12/20 01:45 Active Pulse Oximetry [RC] ASDIRECTED Care 04/12/20 01:44 Active RT Aerosol Therapy [RC] ASDIRECTED Care 04/12/20 01:42 Active Telemetry Monitoring [Cardiac Monitoring] [RC] Q8H Care 04/11/20 23:16 Active Vital Signs [RC] Q4H Care 04/12/20 01:38 Active Fluid Restriction [DIET] Diet 04/12/20 Lunch Active Heart Healthy Diet [DIET] Diet 04/12/20 Breakfast Active CBC WITH AUTO DIFF [HEME] AM Lab 04/13/20 05:11 Ordered CBC WITH AUTO DIFF [HEME] AM Lab 04/14/20 05:11 Ordered CBC WITH AUTO DIFF [HEME] AM Lab 04/15/20 05:11 Ordered COMPREHENSIVE METABOLIC PN,CMP [CHEM] AM Lab 04/13/20 05:11 Ordered COMPREHENSIVE METABOLIC PN,CMP [CHEM] AM Lab 04/14/20 05:11 Ordered COMPREHENSIVE METABOLIC PN,CMP [CHEM] AM Lab 04/15/20 05:11 Ordered CULTURE BLOOD [BC] Stat Lab 04/11/20 19:47 Results CULTURE URINE [RM] Stat Lab 04/11/20 21:30 Received Acetaminophen [TylenoL] Med 04/12/20 01:42 Active 650 mg PO Q6H PRN Albuterol/Ipratropium [DuoNeb 3.0-0.5 MG/3 ML] Med 04/12/20 01:40 Active 3 ml NEB Q4HRRT PRN Apixaban [Eliquis] Med 04/12/20 21:00 Active 5 mg PO BID Furosemide [Lasix] Med 04/12/20 04:00 Active 40 mg IVPUSH Q8HR Levothyroxine [Synthroid] Med 04/13/20 07:30 Active 100 mcg PO ACBREAKFAST Losartan [Cozaar] Med 04/13/20 09:00 Active 100 mg PO DAILY Metoprolol Tartrate [Lopressor] Med 04/12/20 21:00 Active 100 mg PO BID Ondansetron [Zofran] Med 04/12/20 01:43 Active 4 mg IVPUSH Q4H PRN Patient's Own Medication [Ptom] Med 04/12/20 12:07 Active 1 each PO BEDTIME PRN amLODIPine [Norvasc] Med 04/13/20 09:00 Active 5 mg PO DAILY SCD [Sequential Compression Device] [OM.PC] Routine Oth 04/12/20 01:43 Ordered Resuscitation Status Routine Resus Stat 04/12/20 09:47 Ordered Medication Orders Acetaminophen (Tylenol) 650 mg PO Q6H PRN PRN Reason: Pain Last Admin: 04/12/20 18:12 Dose: 650 mg Documented by: JORGE Albuterol/Ipratropium (Duoneb 3.0-0.5 Mg/3 Ml) 3 ml NEB Q4HRRT PRN PRN Reason: Shortness of Breath Amlodipine Besylate (Norvasc) 5 mg PO DAILY BERT Apixaban (Eliquis) 5 mg PO BID BERT Furosemide (Lasix) 40 mg IVPUSH Q8HR BERT Last Admin: 04/12/20 14:14 Dose: 40 mg Documented by: Admin: 04/12/20 05:03 Dose: Not Given Documented by: Admin: 04/12/20 04:00 Dose: 40 mg Documented by: IMELDA Levothyroxine Sodium (Synthroid) 100 mcg PO ACBREAKFAST BERT Losartan Potassium (Cozaar) 100 mg PO DAILY BERT Metoprolol Tartrate (Lopressor) 100 mg PO BID BERT Ondansetron HCl (Zofran) 4 mg IVPUSH Q4H PRN PRN Reason: Nausea/Vomiting Zolpidem Tartrate 10 (Mg) 1 each PO BEDTIME PRN PRN Reason: Insomnia Sodium Chloride (Saline Flush) 2.5 ml FLUSH ASDIRECTED PRN PRN Reason: Keep Vein Open Last Admin: 04/11/20 19:45 Dose: 2.5 ml Documented by: FABRICIO Sodium Chloride (Saline Flush) 10 ml FLUSH ASDIRECTED PRN PRN Reason: Keep Vein Open Last Admin: 04/11/20 19:44 Dose: 10 ml Documented by: FABRICIO Assessment/Plan Comment:: I performed a history and physical exam of the patient and discussed management with resident. I have reviewed the residents note and agree with documented find ings and plan unless otherwise specified in my note.'
[2020-04-12] MEDS ORDERED: Magnesium Sulfate/Water 2 GM/50 ML BAG IV ONE (09:00)
[2020-04-12] MEDS ORDERED: Zolpidem Tartrate 10 MG PO PRN (12:07)
--- NOTE | 2020-04-12 17:19 | PCM.SN.2 ---
- Free Text/Narrative Note: Have called [facility] requesting discussion regarding right renal artery stenosis w. concerns regarding decreased parenchymal diffusion; redirected to another number by switchboard but number kept ringing. Told switchboard of need to speak to [id number]; message was taken but was never called back. patient otherwise stable and in no acute distress. Vitals and labs unchanged from yesterday.
[2020-04-12] MEDS: Acetaminophen 325 MG Tab PO PRN (18:12)
[2020-04-12] MEDS ORDERED: Diltiazem 25 MG/5 ML SDV IVPUSH PRN (21:46)
[2020-04-12] MEDS: Apixaban 5 MG Tab PO SCH (21:49)
[2020-04-12] MEDS: Metoprolol Tartrate 50 MG Tab PO SCH (21:50)
[2020-04-13 05:29] LABS: CARBON DIOXIDE,CO2 32.2 mmol/L (21.0-32.0); POTASSIUM,K 3.4 mmol/L (3.5-5.1)
[2020-04-13] MEDS: Furosemide 40 MG/4 ML VIAL IVPUSH SCH ×3 (06:11→21:12)
[2020-04-13] MEDS: Levothyroxine 100 MCG Tab PO SCH (08:01)
[2020-04-13] MEDS ORDERED: Potassium Chloride 20 MEQ Tab.ER PO ONE (08:03)
[2020-04-13] MEDS: amLODIPine 5 MG Tab PO SCH (08:26)
[2020-04-13] MEDS: Losartan 50 MG Tab PO SCH (08:26)
[2020-04-13] MEDS: Apixaban 5 MG Tab PO SCH ×2 (08:26→21:11)
[2020-04-13] MEDS: Metoprolol Tartrate 50 MG Tab PO SCH ×2 (08:27→21:11)
--- NOTE | 2020-04-13 09:36 | CT ---
EXAM DATE: 04/11/20 PATIENT'S AGE: 84 Patient: KELSEY ROUSE Facility: [facility] Site . Site : [id number] Study: CT-Chest/Abdomen/ Pelvis-04/11/2020 9:13:31 PM Ordering Physician: Jona Mosqueda Final Report: Exam: CT angiography of the chest and abdomen with IV contrast. Clinical Information: History of aortic aneurysm repair. Comparison: CT angiography of the chest and abdomen dated 06/10/2015. Findings: Moderate-severe cardiomegaly, increased since 06/10/2015. Prominent central pulmonary arteries suggestive of elevated pulmonary pressures, as seen previously. No evidence of central pulmonary embolism. Postoperative changes of graft repair of the ascending thoracic through juxtarenal abdominal aorta. The reimplanted great vessels are widely patent. The reimplanted celiac artery, SMA, and left renal artery are widely patent. The reimplanted right renal artery is occluded with hypoperfusion to the right kidney, new since 06/10/2015. Normal caliber infrarenal abdominal aorta with diffuse peripheral calcifications. The RATNA is widely patent. Patent visualized bilateral iliac arteries with moderate atheromatous changes. Respiratory motion artifact limits detailed evaluation of the lungs. Bilateral bronchial wall and interlobular septal thickening with nodular ground-glass opacities in the right greater than left lower lungs consistent with pulmonary edema. The visualized lungs are otherwise clear. Small right and tiny left pleural effusions. The thyroid is not visualized and likely surgically absent. Multiple prominent enlarged mediastinal and right hilar lymph nodes are likely reactive. Respiratory motion limits detail evaluation of the abdomen. Cholecystectomy. Prominent extrahepatic bile ducts likely right postcholecystectomy reservoir effect. Multiple hepatic cysts. Cystic lesion in the pancreatic tail measuring 2.3 cm measured 8 mm on 06/10/2015. The spleen is anteriorly displaced with stable scarring in the lateral aspect. Low-density 3.0 cm lesion in the inferior pole of the right kidney measured 2.5 cm on 06/10/2015. The liver, pancreas, spleen, adrenals, and kidneys are otherwise unremarkable. Small esophageal hiatal hernia, as seen previously. Normal caliber visualized small bowel and colon. No lymphadenopathy in the abdomen. Sternotomy. Old bilateral rib fractures. Moderate degenerative changes throughout the visualized spine and pelvis. Spinal cord stimulator in the right back. Focal calcifications in the right breast should be benign. Impression: 1. Occluded reimplanted right renal artery with no appreciable enhancement of the kidney, new since 06/10/2015. 2. Otherwise stable postoperative changes of graft repair of the ascending thoracic through juxtarenal abdominal aorta. The reimplanted great vessels, celiac artery, SMA, and left renal artery are widely patent. 3. New changes of CHF with moderate-severe cardiomegaly, pulmonary edema, and small bilateral pleural effusions. 4. Multiple prominent enlarged mediastinal and right hilar lymph nodes are likely reactive. 5. Cystic lesion in the pancreatic tail measuring 2.3 cm measured 8 mm on 06/10/2015. Recommend pancreatic protocol CT or MRI in 2 years for follow-up. 6. Low-density 3.0 cm lesion in the inferior pole of the right kidney measured 2.5 cm on 06/10/2015. Recommend renal protection CT or MRI for further evaluation. 7. Small esophageal hiatal hernia Please note that all CT scans at this facility use dose modulation, iterative reconstruction, and/or weight-based dosing when appropriate to reduce radiation dose to as low as reasonably achievable. Dictated by Ricky Avila MD @ Apr 12 2020 11:50AM Signed by: Ricky Avila MD @04/12/2020 12:28:16 PM (Electronic Signature) Report Signed by Proxy. [facility] CENTERKarley
--- NOTE | 2020-04-13 18:00 | PCM.PN ---
<Reina Duff - Last Filed: 04/13/20 18:00> - General Info Date of Service: 04/13/20 Subjective Update: Bedside: states feeling close to normal compared to when initally admitted; states improvement in breathing but still mild SOB in supine position - Review of Systems General: Reports: No Symptoms HEENT: Reports: No Symptoms Pulmonary: Reports: Other (orthopnea ). Denies: Shortness of Breath, Cough Cardiovascular: Reports: No Symptoms Gastrointestinal: Reports: No Symptoms Genitourinary: Reports: No Symptoms Musculoskeletal: Reports: No Symptoms Neurological: Reports: No Symptoms Psychiatric: Reports: No Symptoms - Patient Data Vitals - Most Recent: Last Vital Signs Temp 98.6 F 04/13/20 16:00 Pulse 89 04/13/20 16:00 Resp 18 04/13/20 16:00 BP 110/57 L 04/13/20 16:00 Pulse Ox 93 L 04/13/20 16:00 Weight - Most Recent: 82.146 kg I&O - Last 24 Hours: Intake & Output 04/13/20 04/13/20 04/13/20 06:59 14:59 22:59 Intake Total 400 540 Output Total 1425 1250 Balance -1025 -710 Lab Results Last 24 Hours: Laboratory Results - last 24 hr 04/13/20 04/13/20 Range/Units 04:50 04:50 WBC 6.86 (4.0-11.0) K/uL RBC 3.76 L (4.30-5.90) M/uL Hgb 10.9 L (12.0-16.0) g/dL Hct 34.2 L (36.0-46.0) % MCV 91.0 (80.0-98.0) fL MCH 29.0 (27.0-32.0) pg MCHC 31.9 (31.0-37.0) g/dL RDW Std Deviation 46.9 (28.0-62.0) fl RDW Coeff of José 14 (11.0-15.0) % Plt Count 179 (150-400) K/uL MPV 10.60 (7.40-12.00) fL Neut % (Auto) 57.6 (48.0-80.0) % Lymph % (Auto) 21.9 (16.0-40.0) % Mercer % (Auto) 14.4 (0.0-15.0) % Eos % (Auto) 5.5 (0.0-7.0) % Baso % (Auto) 0.6 (0.0-1.5) % Neut # (Auto) 4.0 (1.4-5.7) K/uL Lymph # (Auto) 1.5 (0.6-2.4) K/uL Mercer # (Auto) 1.0 H (0.0-0.8) K/uL Eos # (Auto) 0.4 (0.0-0.7) K/uL Baso # (Auto) 0.0 (0.0-0.1) K/uL Nucleated RBC % 0.0 /100WBC Nucleated RBCs # 0 K/uL Sodium 142 (136-145) mmol/L Potassium 3.4 L (3.5-5.1) mmol/L Chloride 101 (98-107) mmol/L Carbon Dioxide 32.2 H (21.0-32.0) mmol/L BUN 28 H (7.0-18.0) mg/dL Creatinine 1.4 H (0.6-1.0) mg/dL Est Cr Clr Drug Dosing 29.61 mL/min Estimated GFR (MDRD) 35.9 ml/min Glucose 89 (74-106) mg/dL Calcium 8.9 (8.5-10.1) mg/dL Total Bilirubin 0.6 (0.2-1.0) mg/dL AST 20 (15-37) IU/L ALT 17 (14-63) IU/L Alkaline Phosphatase 92 (46-116) U/L Total Protein 6.5 (6.4-8.2) g/dL Albumin 3.2 L (3.4-5.0) g/dL Globulin 3.3 (2.6-4.0) g/dL Albumin/Globulin Ratio 1.0 (0.9-1.6) Tristan Results Last 24 Hours: Microbiology 04/11/20 21:30 Urine Culture - Final Urine, Clean Catch MIXED DIANA >100,000 CFU/ML 04/11/20 19:47 Aerobic Blood Culture - Preliminary Blood - Venous - Lab Draw NO GROWTH AFTER 1 DAY Anaerobic Blood Culture - Final 04/11/20 19:30 Aerobic Blood Culture - Preliminary Blood - Venous NO GROWTH AFTER 1 DAY Anaerobic Blood Culture - Preliminary NO GROWTH AFTER 1 DAY Med Orders - Current: Current Medications Acetaminophen (Tylenol) 650 mg PO Q6H PRN PRN Reason: Pain Last Admin: 04/12/20 18:12 Dose: 650 mg Documented by: Albuterol/Ipratropium (Duoneb 3.0-0.5 Mg/3 Ml) 3 ml NEB Q4HRRT PRN PRN Reason: Shortness of Breath Amlodipine Besylate (Norvasc) 5 mg PO DAILY [facility] Last Admin: 04/13/20 08:26 Dose: 5 mg Documented by: Apixaban (Eliquis) 5 mg PO BID [facility] Last Admin: 04/13/20 08:26 Dose: 5 mg Documented by: Diltiazem HCl (Diltiazem) 20 mg IVPUSH Q4H PRN PRN Reason: HR >120 Furosemide (Lasix) 40 mg IVPUSH Q8HR [facility] Last Admin: 04/13/20 14:22 Dose: 40 mg Documented by: Levothyroxine Sodium (Synthroid) 100 mcg PO ACBREAKFAST [facility] Last Admin: 04/13/20 08:01 Dose: 100 mcg Documented by: Losartan Potassium (Cozaar) 100 mg PO DAILY [facility] Last Admin: 04/13/20 08:26 Dose: 100 mg Documented by: Metoprolol Tartrate (Lopressor) 100 mg PO BID [facility] Last Admin: 04/13/20 08:27 Dose: 100 mg Documented by: Ondansetron HCl (Zofran) 4 mg IVPUSH Q4H PRN PRN Reason: Nausea/Vomiting Zolpidem Tartrate 10 (Mg) 1 each PO BEDTIME PRN PRN Reason: Insomnia Sodium Chloride (Saline Flush) 2.5 ml FLUSH ASDIRECTED PRN PRN Reason: Keep Vein Open Last Admin: 04/11/20 19:45 Dose: 2.5 ml Documented by: Sodium Chloride (Saline Flush) 10 ml FLUSH ASDIRECTED PRN PRN Reason: Keep Vein Open Last Admin: 04/11/20 19:44 Dose: 10 ml Documented by: Discontinued Medications Furosemide (Lasix) 40 mg IVPUSH NOW ONE Stop: 04/11/20 19:47 Last Admin: 04/11/20 20:03 Dose: 40 mg Documented by: Magnesium Sulfate (Magnesium Sulfate In Water Premix) 2 gm in 50 mls @ 100 mls/hr IV ONETIME ONE Stop: 04/12/20 09:29 Last Admin: 04/12/20 09:56 Dose: 100 mls/hr Documented by: Iopamidol (Isovue Multipack-370 (76%)) 50 ml IVPUSH ONETIME STA Stop: 04/11/20 21:29 Last Admin: 04/11/20 21:30 Dose: 50 ml Documented by: Potassium Chloride (Klor-Con M20) 20 meq PO ONETIME ONE Stop: 04/12/20 07:41 Last Admin: 04/12/20 08:44 Dose: 20 meq Documented by: Potassium Chloride (Klor-Con M20) 20 meq PO ONETIME ONE Stop: 04/13/20 08:04 Last Admin: 04/13/20 08:25 Dose: 20 meq Documented by: - Exam Quality Assessment: No: Supplemental Oxygen General: Alert, Oriented HEENT: EOMI Neck: Supple Lungs: Other (mild rhonichi on right; serial improvement ) Cardiovascular: Regular Rate, Irregular Rhythm GI/Abdominal Exam: Soft, Non-Tender Extremities: Normal Inspection Neurological: No New Focal Deficit Psy/Mental Status: Alert, Normal Mood Sepsis Event Note - Evaluation Sepsis Screening Result: No Definite Risk - Focused Exam Vital Signs: Vital Signs Temp Pulse Pulse Resp BP BP Pulse Ox 04/13/20 16:00 98.6 F 89 18 110/57 L 93 L 04/13/20 12:00 98.8 F 94 16 129/71 92 L 04/13/20 08:27 78 123/59 L 04/13/20 08:26 123/59 L 04/13/20 08:00 97.9 F 78 16 123/59 L 98 - Problem List & Annotations (1) RADHA (acute kidney injury) SNOMED Code(s): 06418973, 67581648 Code(s): N17.9 - ACUTE KIDNEY FAILURE, UNSPECIFIED Status: Acute Current Visit: Yes (2) CHF (congestive heart failure) SNOMED Code(s): 08930242 Code(s): I50.9 - HEART FAILURE, UNSPECIFIED Status: Acute Current Visit: Yes (3) Status post AAA (abdominal aortic aneurysm) repair SNOMED Code(s): 743688580, 780523459 Code(s): Z98.89 - OTHER SPECIFIED POSTPROCEDURAL STATES * DO NOT USE *; Z86.79 - PERSONAL HISTORY OF OTHER DISEASES OF THE CIRCULATORY SYSTEM Status: Acute Current Visit: No - Problem List Review Problem List Initiated/Reviewed/Updated: Yes - My Orders Last 24 Hours: My Active Orders 04/12/20 21:00 Apixaban [Eliquis] 5 mg PO BID Metoprolol Tartrate [Lopressor] 100 mg PO BID 04/13/20 07:30 Levothyroxine [Synthroid] 100 mcg PO ACBREAKFAST 04/13/20 09:00 Losartan [Cozaar] 100 mg PO DAILY amLODIPine [Norvasc] 5 mg PO DAILY 04/14/20 05:11 CBC WITH AUTO DIFF [HEME] AM COMPREHENSIVE METABOLIC PN,CMP [CHEM] AM 04/15/20 05:11 CBC WITH AUTO DIFF [HEME] AM COMPREHENSIVE METABOLIC PN,CMP [CHEM] AM - Plan Plan:: I performed a history and physical exam of the patient and discussed management with resident. I have reviewed the residents note and agree with documented findings and plan unless otherwise specified in my note.' Assessment: 1. CHF exacerbation 2. Acute hypoxic respiratory failure secondary to above 3. Past medical history of atrial fibrillation, hypertension, hyperlipidemia Abdominal aortic aneurysmal repair in 2007 Hypothyroidism 4. Hypokalemia 5. RADHA Plan Admit to observation. Full code. I's and O's strict. Daily weights. Heart healthy diet with low sodium. Fluid restriction of 1.8 L. 1. CHF exacerbation: Continue IV Lasix 40 mg 3 times daily continue fluid and sodium restriction. Daily weights. Monitor I's and O's strictly.; O2 status improving ; still requiring further diuresis due to orthopnea. Will trial o2 challenge in AM 2. Abdominal CTA: Findings for left renal artery occlusion versus stenosis; awaiting Vascular surgery recommendations regarding follow up regarding this. 3. Hypokalemia; 20 mEq provided; recheck BMP in a.m. 4. AFIB: continue Metoprolol/ Eliquis. Continue telemetry monitoring. TSH WNL 5. Hold Chlorthalidone unless needed : e.g: poor urine output /BP issues <Alvaro Cheng - Last Filed: 04/13/20 23:12> - Patient Data Vitals - Most Recent: Last Vital Signs Temp 36.2 C 04/13/20 19:25 Pulse 80 04/13/20 21:11 Resp 19 04/13/20 19:25 BP 115/64 04/13/20 21:11 Pulse Ox 92 L 04/13/20 19:25 I&O - Last 24 Hours: Intake & Output 04/13/20 04/13/20 04/14/20 14:59 22:59 06:59 Intake Total 540 Output Total 1250 Balance -710 Lab Results Last 24 Hours: Laboratory Results - last 24 hr 04/13/20 04/13/20 Range/Units 04:50 04:50 WBC 6.86 (4.0-11.0) K/uL RBC 3.76 L (4.30-5.90) M/uL Hgb 10.9 L (12.0-16.0) g/dL Hct 34.2 L (36.0-46.0) % MCV 91.0 (80.0-98.0) fL MCH 29.0 (27.0-32.0) pg MCHC 31.9 (31.0-37.0) g/dL RDW Std Deviation 46.9 (28.0-62.0) fl RDW Coeff of José 14 (11.0-15.0) % Plt Count 179 (150-400) K/uL MPV 10.60 (7.40-12.00) fL Neut % (Auto) 57.6 (48.0-80.0) % Lymph % (Auto) 21.9 (16.0-40.0) % Mercer % (Auto) 14.4 (0.0-15.0) % Eos % (Auto) 5.5 (0.0-7.0) % Baso % (Auto) 0.6 (0.0-1.5) % Neut # (Auto) 4.0 (1.4-5.7) K/uL Lymph # (Auto) 1.5 (0.6-2.4) K/uL Mercer # (Auto) 1.0 H (0.0-0.8) K/uL Eos # (Auto) 0.4 (0.0-0.7) K/uL Baso # (Auto) 0.0 (0.0-0.1) K/uL Nucleated RBC % 0.0 /100WBC Nucleated RBCs # 0 K/uL Sodium 142 (136-145) mmol/L Potassium 3.4 L (3.5-5.1) mmol/L Chloride 101 (98-107) mmol/L Carbon Dioxide 32.2 H (21.0-32.0) mmol/L BUN 28 H (7.0-18.0) mg/dL Creatinine 1.4 H (0.6-1.0) mg/dL Est Cr Clr Drug Dosing 29.61 mL/min Estimated GFR (MDRD) 35.9 ml/min Glucose 89 (74-106) mg/dL Calcium 8.9 (8.5-10.1) mg/dL Total Bilirubin 0.6 (0.2-1.0) mg/dL AST 20 (15-37) IU/L ALT 17 (14-63) IU/L Alkaline Phosphatase 92 (46-116) U/L Total Protein 6.5 (6.4-8.2) g/dL Albumin 3.2 L (3.4-5.0) g/dL Globulin 3.3 (2.6-4.0) g/dL Albumin/Globulin Ratio 1.0 (0.9-1.6) Tristan Results Last 24 Hours: Microbiology 04/11/20 19:47 Aerobic Blood Culture - Preliminary Blood - Venous - Lab Draw NO GROWTH AFTER 2 DAYS Anaerobic Blood Culture - Final 04/11/20 19:30 Aerobic Blood Culture - Preliminary Blood - Venous NO GROWTH AFTER 2 DAYS Anaerobic Blood Culture - Preliminary NO GROWTH AFTER 2 DAYS 04/11/20 21:30 Urine Culture - Final Urine, Clean Catch MIXED DIANA >100,000 CFU/ML Med Orders - Current: Current Medications Acetaminophen (Tylenol) 650 mg PO Q6H PRN PRN Reason: Pain Last Admin: 04/12/20 18:12 Dose: 650 mg Documented by: Albuterol/Ipratropium (Duoneb 3.0-0.5 Mg/3 Ml) 3 ml NEB Q4HRRT PRN PRN Reason: Shortness of Breath Amlodipine Besylate (Norvasc) 5 mg PO DAILY [facility] Last Admin: 04/13/20 08:26 Dose: 5 mg Documented by: Apixaban (Eliquis) 5 mg PO BID [facility] Last Admin: 04/13/20 21:11 Dose: 5 mg Documented by: Diltiazem HCl (Diltiazem) 20 mg IVPUSH Q4H PRN PRN Reason: HR >120 Furosemide (Lasix) 40 mg IVPUSH Q8HR [facility] Last Admin: 04/13/20 21:12 Dose: 40 mg Documented by: Levothyroxine Sodium (Synthroid) 100 mcg PO ACBREAKFAST [facility] Last Admin: 04/13/20 08:01 Dose: 100 mcg Documented by: Losartan Potassium (Cozaar) 100 mg PO DAILY [facility] Last Admin: 04/13/20 08:26 Dose: 100 mg Documented by: Metoprolol Tartrate (Lopressor) 100 mg PO BID [facility] Last Admin: 04/13/20 21:11 Dose: 100 mg Documented by: Ondansetron HCl (Zofran) 4 mg IVPUSH Q4H PRN PRN Reason: Nausea/Vomiting Zolpidem Tartrate 10 (Mg) 1 each PO BEDTIME PRN PRN Reason: Insomnia Sodium Chloride (Saline Flush) 2.5 ml FLUSH ASDIRECTED PRN PRN Reason: Keep Vein Open Last Admin: 04/11/20 19:45 Dose: 2.5 ml Documented by: Sodium Chloride (Saline Flush) 10 ml FLUSH ASDIRECTED PRN PRN Reason: Keep Vein Open Last Admin: 04/11/20 19:44 Dose: 10 ml Documented by: Discontinued Medications Furosemide (Lasix) 40 mg IVPUSH NOW ONE Stop: 04/11/20 19:47 Last Admin: 04/11/20 20:03 Dose: 40 mg Documented by: Magnesium Sulfate (Magnesium Sulfate In Water Premix) 2 gm in 50 mls @ 100 mls /hr IV ONETIME ONE Stop: 04/12/20 09:29 Last Admin: 04/12/20 09:56 Dose: 100 mls/hr Documented by: Iopamidol (Isovue Multipack-370 (76%)) 50 ml IVPUSH ONETIME STA Stop: 04/11/20 21:29 Last Admin: 04/11/20 21:30 Dose: 50 ml Documented by: Potassium Chloride (Klor-Con M20) 20 meq PO ONETIME ONE Stop: 04/12/20 07:41 Last Admin: 04/12/20 08:44 Dose: 20 meq Documented by: Potassium Chloride (Klor-Con M20) 20 meq PO ONETIME ONE Stop: 04/13/20 08:04 Last Admin: 04/13/20 08:25 Dose: 20 meq Documented by: Sepsis Event Note - Focused Exam Vital Signs: Vital Signs Temp Pulse Pulse Resp BP BP BP 04/13/20 21:11 80 115/64 04/13/20 19:25 36.2 C 80 19 115/64 04/13/20 16:00 37.0 C 89 18 110/57 L 04/13/20 12:00 37.1 C 94 16 129/71 Pulse Ox 04/13/20 21:11 04/13/20 19:25 92 L 04/13/20 16:00 93 L 04/13/20 12:00 92 L - Problem List & Annotations (1) CHF (congestive heart failure) SNOMED Code(s): 96729830 Code(s): I50.9 - HEART FAILURE, UNSPECIFIED Status: Acute Current Visit: Yes (2) Hypokalemia SNOMED Code(s): 17450971 Code(s): E87.6 - HYPOKALEMIA Status: Acute Current Visit: Yes (3) RADHA (acute kidney injury) SNOMED Code(s): 03419807, 01030080 Code(s): N17.9 - ACUTE KIDNEY FAILURE, UNSPECIFIED Status: Acute Current Visit: Yes (4) Pulmonary edema SNOMED Code(s): 18022797 Code(s): J81.1 - CHRONIC PULMONARY EDEMA Status: Acute Current Visit: Yes (5) Respiratory failure with hypoxia SNOMED Code(s): 14952826435979174 Code(s): J96.91 - RESPIRATORY FAILURE, UNSPECIFIED WITH HYPOXIA Status: Acute Current Visit: Yes (6) Status post AAA (abdominal aortic aneurysm) repair SNOMED Code(s): 289962504, 246062696 Code(s): Z98.89 - OTHER SPECIFIED POSTPROCEDURAL STATES * DO NOT USE *; Z86.79 - PERSONAL HISTORY OF OTHER DISEASES OF THE CIRCULATORY SYSTEM Status: Acute Current Visit: No - Plan Plan:: I have seen and evaluated the patient and agree with the residents note unless specified in my note
[2020-04-14] MEDS: Acetaminophen 325 MG Tab PO PRN (00:03)
[2020-04-14 05:56] LABS: POTASSIUM,K 3.2 mmol/L (3.5-5.1)
[2020-04-14] MEDS: Levothyroxine 100 MCG Tab PO SCH (06:58)
[2020-04-14] MEDS: Furosemide 40 MG/4 ML VIAL IVPUSH SCH (06:59)
[2020-04-14] MEDS ORDERED: Potassium Chloride 20 MEQ Tab.ER PO ONE (07:41)
[2020-04-14] MEDS: Losartan 50 MG Tab PO SCH (08:49)
[2020-04-14] MEDS: Metoprolol Tartrate 50 MG Tab PO SCH (08:49)
[2020-04-14] MEDS: amLODIPine 5 MG Tab PO SCH (08:50)
[2020-04-14] MEDS: Apixaban 5 MG Tab PO SCH (08:50)
--- NOTE | 2020-04-14 10:48 | PCM.DCSUM1 ---
Discharge Summary - Hospital Course Free Text/Narrative:: Hospital course Patient is a 83-year-old female with significant past medical history of atrial fibrillation, hypertension, hyperlipidemia status post abdominal aortic aneurysmal repair into 2007 presenting on day 1 for increasing dyspnea especially in the supine position for 3 to 4 days. Patient was brought to the ED via EMS and endorsed a history of heart failure. Of note patient also was told to increase his third medication however patient cannot recall which medication this was. ED course oxygen saturation is 86% requiring short course of BiPAP. However was weaned down to 3 to 4 L and was provided a one-time dose of IV Lasix with good response. EKG showed old left bundle branch block with a left axis deviation without ST elevation/depression. CT chest and abdomen pelvis showed small bilateral pleural effusion with pulmonary congestion and incidental finding of reduced/hypoperfusion of right kidney. Labs otherwise were nominal including kidney function. Patient was admitted to general medical floor and was started on IV Lasix 40 mg 3 times daily. Throughout stay patient did diurese well with decreased O2 requirement ultimately back on room air. Contacted Dr. 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 However states aortic aneurysmal repair back in 2007 may have been the culprit. Patient was made aware of this findings on CT abdomen; was not aware; discussed chronicity of this issue; patient endorsed not having followed- up with the surgeon who had performed the AAA because it was done in [facility] and was "too far away". Patient otherwise stable and discharged after requesting to go home. Increased home daily Lasix. Home health ordered to check for daily weights in light of her CHF exacerbation. Follow-up with both primary care and outpatient vascular surgery scheduled. - Discharge Data Discharge Date: 04/14/20 Discharge Disposition: Home, W Home Health Agency 06 Condition: Stable - Referral to Home Health Date of Face to Face Encounter: 04/14/20 Reason for Homebound Status: CHF/SOB Primary Care Physician: PCP None Skilled Need: monitor o2, daily weights etc - Discharge Diagnosis/Problem(s) (1) RADHA (acute kidney injury) SNOMED Code(s): 77162859, 92191523 ICD Code: N17.9 - ACUTE KIDNEY FAILURE, UNSPECIFIED Status: Acute (2) CHF (congestive heart failure) SNOMED Code(s): 22788136 ICD Code: I50.9 - HEART FAILURE, UNSPECIFIED Status: Acute Qualifiers: Heart failure type: unspecified Heart failure chronicity: acute on chronic Qualified Code(s): I50.9 - Heart failure, unspecified (3) Status post AAA (abdominal aortic aneurysm) repair SNOMED Code(s): 042779751, 405864298 ICD Code: Z98.89 - OTHER SPECIFIED POSTPROCEDURAL STATES * DO NOT USE *; Z86.79 - PERSONAL HISTORY OF OTHER DISEASES OF THE CIRCULATORY SYSTEM Status: Acute - Patient Summary/Data Consults: Consultations 04/14/20 09:56 Consult to Home Health [CONS] Routine - Patient Instructions Diet: Heart Healthy Diet Fluid Restriction: 1800 ml Notify Provider of: Fever - Discharge Plan *PRESCRIPTION DRUG MONITORING PROGRAM REVIEWED*: No *COPY OF PRESCRIPTION DRUG MONITORING REPORT IN PATIENT HEATHER: No Prescriptions/Med Rec: Chlorthalidone 12.5 mg PO DAILY 30 Days #14 tab Potassium Chloride [Klor-Con M20] 20 meq PO DAILY 30 Days #30 tab.er Furosemide [Lasix] 40 mg PO DAILY 30 Days #30 tab Home Medications: Home Meds Calcium Carb, Citrate/Vit D3 [Citracal + D ER] 1 tab PO DAILY 11/01/14 [History] Levothyroxine Sodium [Synthroid] 100 mcg PO DAILY 11/01/14 [History] Losartan Potassium [Cozaar] 100 mg PO DAILY 11/01/14 [History] Magnesium 200 mg PO DAILY 11/01/14 [History] Metoprolol Tartrate 100 mg PO BID 11/01/14 [History] Multivitamin [Multivitamins] 1 tab PO DAILY 11/01/14 [History] Zolpidem Tartrate 10 mg PO BEDTIME PRN 11/01/14 [History] amLODIPine [Norvasc] 5 mg PO DAILY 11/01/14 [History] atorvaSTATin Calcium [Atorvastatin Calcium] 20 mg PO BEDTIME 11/01/14 [History] Bifidobacter. Bifidum/B.Longum [Florajen Bifidoblend] 460 mg PO DAILY 06/10/15 [History] Apixaban [Eliquis] 5 mg PO BID 04/12/20 [History] Cholecalciferol (Vitamin D3) [Vitamin D3] 1,000 unit PO DAILY 04/12/20 [History] Omeprazole 20 mg PO DAILY 04/12/20 [History] Zinc 50 mg PO DAILY 04/12/20 [History] Acetaminophen [Tylenol] 650 mg PO Q6H PRN tablet 04/14/20 [Rx] Chlorthalidone 12.5 mg PO DAILY 30 Days #14 tab 04/14/20 [Rx] Furosemide [Lasix] 40 mg PO DAILY 30 Days #30 tab 04/14/20 [Rx] Potassium Chloride [Klor-Con M20] 20 meq PO DAILY 30 Days #30 tab.er 04/14/20 [Rx] Patient Handouts: Furosemide tablets, Potassium chloride tablets, extended- release tablets or capsules, Heart Failure, Self Care, [id number], Pulmonary Edema, [id number] Referrals: Jeremy Zapata MD [Ordering Only Provider] - 04/26/20 10:45 am Saurav Miller MD [Ordering Only Provider] - 04/26/20 8:45 am - Discharge Summary/Plan Comment DC Time >30 min.: No - Patient Data Vitals - Most Recent: Last Vital Signs Temp 97.0 F 04/14/20 07:41 Pulse 100 04/14/20 08:49 Resp 22 H 04/14/20 07:41 BP 117/67 04/14/20 08:50 Pulse Ox 96 04/14/20 07:41 Weight - Most Recent: 81.964 kg I&O - Last 24 hours: Intake & Output 04/13/20 04/14/20 04/14/20 22:59 06:59 14:59 Intake Total 540 370 Output Total 1250 1100 Balance -710 -730 Lab Results - Last 24 hrs: Laboratory Results - last 24 hr 04/14/20 04/14/20 Range/Units 04:46 04:46 WBC 6.05 (4.0-11.0) K/uL RBC 3.64 L (4.30-5.90) M/uL Hgb 10.6 L (12.0-16.0) g/dL Hct 33.4 L (36.0-46.0) % MCV 91.8 (80.0-98.0) fL MCH 29.1 (27.0-32.0) pg MCHC 31.7 (31.0-37.0) g/dL RDW Std Deviation 47.5 (28.0-62.0) fl RDW Coeff of José 14 (11.0-15.0) % Plt Count 180 (150-400) K/uL MPV 10.60 (7.40-12.00) fL Neut % (Auto) 36.7 L (48.0-80.0) % Lymph % (Auto) 41.0 H (16.0-40.0) % Osborne % (Auto) 14.9 (0.0-15.0) % Eos % (Auto) 6.6 (0.0-7.0) % Baso % (Auto) 0.8 (0.0-1.5) % Neut # (Auto) 2.2 (1.4-5.7) K/uL Lymph # (Auto) 2.5 H (0.6-2.4) K/uL Osborne # (Auto) 0.9 H (0.0-0.8) K/uL Eos # (Auto) 0.4 (0.0-0.7) K/uL Baso # (Auto) 0.1 (0.0-0.1) K/uL Nucleated RBC % 0.0 /100WBC Nucleated RBCs # 0 K/uL Sodium 141 (136-145) mmol/L Potassium 3.2 L (3.5-5.1) mmol/L Chloride 101 (98-107) mmol/L Carbon Dioxide 33.0 H (21.0-32.0) mmol/L BUN 30 H (7.0-18.0) mg/dL Creatinine 1.4 H (0.6-1.0) mg/dL Est Cr Clr Drug Dosing 29.61 mL/min Estimated GFR (MDRD) 35.9 ml/min Glucose 85 (74-106) mg/dL Calcium 8.9 (8.5-10.1) mg/dL Total Bilirubin 0.5 (0.2-1.0) mg/dL AST 20 (15-37) IU/L ALT 17 (14-63) IU/L Alkaline Phosphatase 87 (46-116) U/L Total Protein 6.3 L (6.4-8.2) g/dL Albumin 3.1 L (3.4-5.0) g/dL Globulin 3.2 (2.6-4.0) g/dL Albumin/Globulin Ratio 1.0 (0.9-1.6) [place] Results - Last 24 hrs: Microbiology 04/11/20 19:47 Aerobic Blood Culture - Preliminary Blood - Venous - Lab Draw NO GROWTH AFTER 2 DAYS Anaerobic Blood Culture - Final 04/11/20 19:30 Aerobic Blood Culture - Preliminary Blood - Venous NO GROWTH AFTER 2 DAYS Anaerobic Blood Culture - Preliminary NO GROWTH AFTER 2 DAYS 04/11/20 21:30 Urine Culture - Final Urine, Clean Catch MIXED DIANA >100,000 CFU/ML Med Orders - Current: Current Medications Acetaminophen (Tylenol) 650 mg PO Q6H PRN PRN Reason: Pain Last Admin: 04/14/20 00:03 Dose: 650 mg Documented by: Albuterol/Ipratropium (Duoneb 3.0-0.5 Mg/3 Ml) 3 ml NEB Q4HRRT PRN PRN Reason: Shortness of Breath Amlodipine Besylate (Norvasc) 5 mg PO DAILY [facility] Last Admin: 04/14/20 08:50 Dose: 5 mg Documented by: Apixaban (Eliquis) 5 mg PO BID [facility] Last Admin: 04/14/20 08:50 Dose: 5 mg Documented by: Diltiazem HCl (Diltiazem) 20 mg IVPUSH Q4H PRN PRN Reason: HR >120 Furosemide (Lasix) 40 mg IVPUSH Q8HR [facility] Last Admin: 04/14/20 06:59 Dose: 40 mg Documented by: Levothyroxine Sodium (Synthroid) 100 mcg PO ACBREAKFAST [facility] Last Admin: 04/14/20 06:58 Dose: 100 mcg Documented by: Losartan Potassium (Cozaar) 100 mg PO DAILY [facility] Last Admin: 04/14/20 08:49 Dose: 100 mg Documented by: Metoprolol Tartrate (Lopressor) 100 mg PO BID [facility] Last Admin: 04/14/20 08:49 Dose: 100 mg Documented by: Ondansetron HCl (Zofran) 4 mg IVPUSH Q4H PRN PRN Reason: Nausea/Vomiting Zolpidem Tartrate 10 (Mg) 1 each PO BEDTIME PRN PRN Reason: Insomnia Sodium Chloride (Saline Flush) 2.5 ml FLUSH ASDIRECTED PRN PRN Reason: Keep Vein Open Last Admin: 04/11/20 19:45 Dose: 2.5 ml Documented by: Sodium Chloride (Saline Flush) 10 ml FLUSH ASDIRECTED PRN PRN Reason: Keep Vein Open Last Admin: 04/11/20 19:44 Dose: 10 ml Documented by: Discontinued Medications Furosemide (Lasix) 40 mg IVPUSH NOW ONE Stop: 04/11/20 19:47 Last Admin: 04/11/20 20:03 Dose: 40 mg Documented by: Magnesium Sulfate (Magnesium Sulfate In Water Premix) 2 gm in 50 mls @ 100 mls/hr IV ONETIME ONE Stop: 04/12/20 09:29 Last Admin: 04/12/20 09:56 Dose: 100 mls/hr Documented by: Iopamidol (Isovue Multipack-370 (76%)) 50 ml IVPUSH ONETIME STA Stop: 04/11/20 21:29 Last Admin: 04/11/20 21:30 Dose: 50 ml Documented by: Potassium Chloride (Klor-Con M20) 20 meq PO ONETIME ONE Stop: 04/12/20 07:41 Last Admin: 04/12/20 08:44 Dose: 20 meq Documented by: Potassium Chloride (Klor-Con M20) 20 meq PO ONETIME ONE Stop: 04/13/20 08:04 Last Admin: 04/13/20 08:25 Dose: 20 meq Documented by: Potassium Chloride (Klor-Con M20) 40 meq PO ONETIME ONE Stop: 04/14/20 07:42 Last Admin: 04/14/20 08:49 Dose: 40 meq Documented by:
[2020-04-14 11:44] VITALS: BP 124/59; PULSE 83
== END 2020-04-14 12:50 | disposition home health service (06) ==
LOC: MW.ED 18:59 → MW.MS 23:03
PROVIDERS: ADMIT Student in an Organized Health Care Education/Training Program; ATTEND Student in an Organized Health Care Education/Training Program
DX: I11.0 Hypertensive heart disease with heart failure (principal); I50.9 Heart failure, unspecified; J96.01 Acute respiratory failure with hypoxia; N17.9 Acute kidney failure, unspecified; I48.91 Unspecified atrial fibrillation; E78.5 Hyperlipidemia, unspecified; E78.00 Pure hypercholesterolemia, unspecified; E03.9 Hypothyroidism, unspecified; Z20.828 Contact with and (suspected) exposure to other viral communicable diseases; E87.6 Hypokalemia; Z88.8 Allergy status to other drugs, medicaments and biological substances; Z79.899 Other long term (current) drug therapy; Z79.890 Hormone replacement therapy; Z90.49 Acquired absence of other specified parts of digestive tract; Z98.890 Other specified postprocedural states
CPT/HCPCS: 0240U; 36415; 36600; 71045; 71275; 74175; 80048; 80053; 81001; 82803; 83605; 83690; 83735; 83880; 84100; 84443; 84484; 85025; 87040; 87086; 93005; 94660; 96374; 96375; 96376; 99285; A9270; G0378; J1940; J3475; Q9967; 99291

== ENCOUNTER 2023-03-27 16:32 | Emergency (ER) | payer MEDICARE, BC ==
[2023-03-27 17:04] LABS: BASOPHILS ABSOLUTE AUTO 0.04 K/uL (0.00-0.20); BASOPHILS PERCENT AUTO 0.6 % (0.0-1.0); EOSINOPHILS ABSOLUTE AUTO 0.26 K/uL (0.00-0.45); EOSINOPHILS PERCENT AUTO 4.1 % (0.0-6.0); HEMOGLOBIN 12.2 g/dL (12.0-16.0); IMMATURE GRAN ABSOLUTE AUTO 0.01 K/uL (0.00-0.05); IMMATURE GRAN PERCENT AUTO 0.2 % (0.0-0.4); LYMPHOCYTES ABSOLUTE AUTO 2.21 K/uL (1.00-4.80); LYMPHOCYTES PERCENT AUTO 34.8 % (24.0-44.0); MEAN CORPUSCULAR HEMOGLOBIN 30.3 pg (28.0-32.0); MEAN CORPUSCULAR HGB CONC 33.9 g/dL (32.0-36.0); MEAN CORPUSCULAR VOLUME 89.6 fL (83.0-99.0); MEAN PLATELET VOLUME 10.4 fL (9.4-12.3); MONOCYTES ABSOLUTE AUTO 0.71 K/uL (0.00-0.80); MONOCYTES PERCENT AUTO 11.2 % (0.0-8.0); NEUTROPHILS ABSOLUTE AUTO 3.12 K/uL (1.80-7.70); NEUTROPHILS PERCENT AUTO 49.1 % (41.0-71.0); PLATELET COUNT,PLT 167 K/uL (150-400); RED BLOOD CELL COUNT 4.02 M/uL (4.10-5.30); WHITE BLOOD CELL COUNT,WBC 6.35 K/uL (3.9-11.3)
[2023-03-27 17:15] LABS: INR 1.17 (0.86-1.11); PTT,PARTIAL THROMBOPLSTIN TIME 31.9 SEC (23.9-30.7)
[2023-03-27 17:27] LABS: A/G RATIO 0.8 (0.9-1.6); ALBUMIN 3.3 g/dL (3.4-5.0); BILIRUBIN TOTAL 0.6 mg/dL (0.2-1.0); CALCIUM 8.8 mg/dL (8.5-10.1); CARBON DIOXIDE,CO2 31.1 mmol/L (21.0-32.0); CREATININE 1.3 mg/dL (0.6-1.0); EST CRCL DRUG DOSING (CG) 30.21 mL/min; MAGNESIUM 2.1 mg/dL (1.8-2.4); POTASSIUM,K 3.9 mmol/L (3.5-5.1); PROTEIN TOTAL,TP 7.7 g/dL (6.4-8.2)
[2023-03-27 18:39] VITALS: BP 168/88; PULSE 70
== END 2023-03-27 18:39 | disposition home or self-care (01) ==
LOC: MW.ED 16:32
DX: S00.03XA Contusion of scalp, initial encounter (principal); I48.91 Unspecified atrial fibrillation; I11.0 Hypertensive heart disease with heart failure; I50.9 Heart failure, unspecified; E78.00 Pure hypercholesterolemia, unspecified; E03.9 Hypothyroidism, unspecified; Z79.899 Other long term (current) drug therapy; Z79.01 Long term (current) use of anticoagulants; Z88.8 Allergy status to other drugs, medicaments and biological substances; W18.30XA Fall on same level, unspecified, initial encounter
CPT/HCPCS: 36415; 70450; 70450-26; 71045; 71045-26; 72125; 72125-26; 80053; 83735; 84484; 85025; 85610; 85730; 93005; 93010; 99282; 99284

== ENCOUNTER 2023-06-06 10:38 | Observation (INO) | payer MEDICARE, BC ==
[2023-06-06] MEDS: Sodium Chloride 0.9% 2.5 ML Syringe FLUSH PRN (11:31)
[2023-06-06] MEDS: Sodium Chloride 0.9% 10 ML Syringe FLUSH PRN (11:32)
[2023-06-06 11:37] LABS: BASOPHILS ABSOLUTE AUTO 0.06 K/uL (0.00-0.20); BASOPHILS PERCENT AUTO 0.8 % (0.0-1.0); EOSINOPHILS ABSOLUTE AUTO 0.18 K/uL (0.00-0.45); EOSINOPHILS PERCENT AUTO 2.4 % (0.0-6.0); HEMATOCRIT 38.6 % (37.0-47.0); HEMOGLOBIN 12.7 g/dL (12.0-16.0); IMMATURE GRAN ABSOLUTE AUTO 0.01 K/uL (0.00-0.05); IMMATURE GRAN PERCENT AUTO 0.1 % (0.0-0.4); LYMPHOCYTES ABSOLUTE AUTO 1.95 K/uL (1.00-4.80); MEAN CORPUSCULAR HEMOGLOBIN 30.1 pg (28.0-32.0); MEAN CORPUSCULAR HGB CONC 32.9 g/dL (32.0-36.0); MEAN CORPUSCULAR VOLUME 91.5 fL (83.0-99.0); MEAN PLATELET VOLUME 10.8 fL (9.4-12.3); MONOCYTES ABSOLUTE AUTO 0.92 K/uL (0.00-0.80); MONOCYTES PERCENT AUTO 12.3 % (0.0-8.0); NEUTROPHILS ABSOLUTE AUTO 4.39 K/uL (1.80-7.70); NEUTROPHILS PERCENT AUTO 58.4 % (41.0-71.0); PLATELET COUNT,PLT 166 K/uL (150-400); RED BLOOD CELL COUNT 4.22 M/uL (4.10-5.30); WHITE BLOOD CELL COUNT,WBC 7.51 K/uL (3.9-11.3)
[2023-06-06 11:42] LABS: INR 1.09 (0.86-1.11)
[2023-06-06 12:06] LABS: A/G RATIO 0.7 (0.9-1.6); ALBUMIN 3.3 g/dL (3.4-5.0); BILIRUBIN TOTAL 0.6 mg/dL (0.2-1.0); CALCIUM 8.9 mg/dL (8.5-10.1); CARBON DIOXIDE,CO2 28.7 mmol/L (21.0-32.0); CREATININE 1.6 mg/dL (0.6-1.0); EST CRCL DRUG DOSING (CG) 23.63 mL/min; POTASSIUM,K 3.7 mmol/L (3.5-5.1); PROTEIN TOTAL,TP 7.9 g/dL (6.4-8.2)
[2023-06-06] MEDS: Diphtheria,Pertussis(Acell),Tetanus Vaccine 0.5 ML Syringe IM ONE (12:58)
[2023-06-06 13:17] LABS: BILIRUBIN,URINE NEGATIVE (NEGATIVE); COLOR,URINE YELLOW; GLUCOSE,URINE 250 mg/dL (NEGATIVE); KETONES,URINE NEGATIVE (NEGATIVE); LEUKOCYTE ESTERASE,URINE TRACE (NEGATIVE); NITRITE,URINE NEGATIVE (NEGATIVE); OCCULT BLOOD,URINE TRACE-INTACT (NEGATIVE); PROTEIN,URINE 30 mg/dL (NEGATIVE); UROBILINOGEN,URINE 0.2 EU/dL (<2.0)
[2023-06-06 13:39] LABS: APPEARANCE,URINE SLT CLOUDY
[2023-06-06 13:41] LABS: BACTERIA,URINE FEW (NEGATIVE); EPITHELIAL CELLS,URINE FEW (NONE-FEW); RBC,URINE 0-2 (0-2/HPF)
[2023-06-06] MEDS: Potassium Chloride 20 MEQ Tab.ER PO ONE (14:20)
[2023-06-06] MEDS ORDERED: Ondansetron 4 MG/2 ML SDV IVPUSH PRN (15:56)
[2023-06-06] MEDS ORDERED: Sodium Chloride 0.9% 10 ML Syringe FLUSH PRN (15:56)
[2023-06-06] MEDS ORDERED: Acetaminophen 325 MG Tab PO PRN (15:56)
[2023-06-06] MEDS ORDERED: Sodium Chloride 0.9% 2.5 ML Syringe FLUSH PRN (15:56)
[2023-06-06] MEDS: Metoprolol Tartrate 50 MG Tab PO SCH (21:00)
[2023-06-06] MEDS: Apixaban 5 MG Tab PO SCH (21:01)
[2023-06-06] MEDS: Diltiazem IR 30 MG Tab PO SCH (23:02)
[2023-06-07 05:44] LABS: BASOPHILS ABSOLUTE AUTO 0.04 K/uL (0.00-0.20); BASOPHILS PERCENT AUTO 0.6 % (0.0-1.0); EOSINOPHILS ABSOLUTE AUTO 0.28 K/uL (0.00-0.45); EOSINOPHILS PERCENT AUTO 4.4 % (0.0-6.0); HEMATOCRIT 34.6 % (37.0-47.0); HEMOGLOBIN 11.4 g/dL (12.0-16.0); IMMATURE GRAN ABSOLUTE AUTO 0.01 K/uL (0.00-0.05); IMMATURE GRAN PERCENT AUTO 0.2 % (0.0-0.4); LYMPHOCYTES ABSOLUTE AUTO 2.08 K/uL (1.00-4.80); MEAN CORPUSCULAR HGB CONC 32.9 g/dL (32.0-36.0); MEAN CORPUSCULAR VOLUME 91.1 fL (83.0-99.0); MEAN PLATELET VOLUME 10.2 fL (9.4-12.3); MONOCYTES ABSOLUTE AUTO 0.82 K/uL (0.00-0.80); NEUTROPHILS ABSOLUTE AUTO 3.07 K/uL (1.80-7.70); NEUTROPHILS PERCENT AUTO 48.8 % (41.0-71.0); PLATELET COUNT,PLT 157 K/uL (150-400)
[2023-06-07 06:04] LABS: CALCIUM 8.6 mg/dL (8.5-10.1); CARBON DIOXIDE,CO2 29.2 mmol/L (21.0-32.0); CREATININE 1.5 mg/dL (0.6-1.0); EST CRCL DRUG DOSING (CG) 25.2 mL/min; MAGNESIUM 2.1 mg/dL (1.8-2.4)
[2023-06-07 11:35] VITALS: BP 152/76; PULSE 73
== END 2023-06-07 11:41 | disposition home or self-care (01) ==
LOC: MW.ED 10:38 → MW.MS 14:58
PROVIDERS: ADMIT Internal Medicine; ATTEND Internal Medicine
DX: R55 Syncope and collapse (principal); I11.0 Hypertensive heart disease with heart failure; I50.20 Unspecified systolic (congestive) heart failure; I48.21 Permanent atrial fibrillation; E78.00 Pure hypercholesterolemia, unspecified; K21.9 Gastro-esophageal reflux disease without esophagitis; E03.9 Hypothyroidism, unspecified; Z79.890 Hormone replacement therapy; Z79.01 Long term (current) use of anticoagulants; Z79.899 Other long term (current) drug therapy; Z98.890 Other specified postprocedural states; Z88.8 Allergy status to other drugs, medicaments and biological substances
CPT/HCPCS: 36415; 70450; 71046; 72125; 73120; 80048; 80053; 81001; 83735; 83880; 84484; 85025; 85610; 90471; 90715; 93005; 93246; 93306; 97161; 99285; A9270; J3490; 93010; G0378

== ENCOUNTER 2023-10-05 09:52 | Inpatient (IN) | payer MEDICARE, BC ==
[2023-10-05] MEDS ORDERED: Sodium Chloride 0.9% 10 ML Syringe FLUSH PRN (09:54)
[2023-10-05] MEDS ORDERED: Sodium Chloride 0.9% 2.5 ML Syringe FLUSH PRN (09:54)
[2023-10-05 10:10] LABS: BASOPHILS ABSOLUTE AUTO 0.03 K/uL (0.00-0.20); BASOPHILS PERCENT AUTO 0.4 % (0.0-1.0); HEMATOCRIT 33.2 % (37.0-47.0); HEMOGLOBIN 10.5 g/dL (12.0-16.0); IMMATURE GRAN ABSOLUTE AUTO 0.02 K/uL (0.00-0.05); IMMATURE GRAN PERCENT AUTO 0.3 % (0.0-0.4); LYMPHOCYTES ABSOLUTE AUTO 0.85 K/uL (1.00-4.80); MEAN CORPUSCULAR HEMOGLOBIN 29.7 pg (28.0-32.0); MEAN CORPUSCULAR HGB CONC 31.6 g/dL (32.0-36.0); MEAN CORPUSCULAR VOLUME 93.8 fL (83.0-99.0); MEAN PLATELET VOLUME 11.4 fL (9.4-12.3); MONOCYTES ABSOLUTE AUTO 0.67 K/uL (0.00-0.80); MONOCYTES PERCENT AUTO 8.6 % (0.0-8.0); NEUTROPHILS ABSOLUTE AUTO 6.18 K/uL (1.80-7.70); NEUTROPHILS PERCENT AUTO 79.7 % (41.0-71.0); PLATELET COUNT,PLT 161 K/uL (150-400); RED BLOOD CELL COUNT 3.54 M/uL (4.10-5.30); WHITE BLOOD CELL COUNT,WBC 7.75 K/uL (3.9-11.3)
[2023-10-05 10:24] LABS: INR 1.24 (0.86-1.11)
[2023-10-05 10:45] LABS: A/G RATIO 0.8 (0.9-1.6); CALCIUM 8.5 mg/dL (8.5-10.1); CARBON DIOXIDE,CO2 29.8 mmol/L (21.0-32.0); CREATININE 1.8 mg/dL (0.6-1.0); EST CRCL DRUG DOSING (CG) 20.61 mL/min; MAGNESIUM 2.1 mg/dL (1.8-2.4); POTASSIUM,K 4.8 mmol/L (3.5-5.1); TSH ULTRASENSITIVE 4.01 uIU/mL (0.36-3.74)
[2023-10-05] MEDS: Diphtheria,Pertussis(Acell),Tetanus Vaccine 0.5 ML Syringe IM ONE (10:59)
[2023-10-05] MEDS: Furosemide 20 MG/2 ML VIAL IVPUSH ONE (11:45)
[2023-10-05 11:46] LABS: T4 FREE 1.19 ng/dL (0.76-1.46)
[2023-10-05 12:03] LABS: APPEARANCE,URINE CLEAR; BILIRUBIN,URINE NEGATIVE (NEGATIVE); COLOR,URINE YELLOW; GLUCOSE,URINE NEGATIVE (NEGATIVE); KETONES,URINE NEGATIVE (NEGATIVE); LEUKOCYTE ESTERASE,URINE NEGATIVE (NEGATIVE); NITRITE,URINE NEGATIVE (NEGATIVE); OCCULT BLOOD,URINE NEGATIVE (NEGATIVE); PH,URINE 5.5 (5.0-8.0); PROTEIN,URINE 100 mg/dL (NEGATIVE); UROBILINOGEN,URINE 0.2 EU/dL (<2.0)
[2023-10-05 12:10] LABS: BACTERIA,URINE NOT SEEN (NEGATIVE); EPITHELIAL CELLS,URINE RARE (NONE-FEW); RBC,URINE 0-1 (0-2/HPF); WBC,URINE 0-1 (0-5/HPF)
[2023-10-05] MEDS: Iopamidol 755 MG/ML 500 ML Multipack Bottle IVPUSH STA (13:35)
[2023-10-05] MEDS ORDERED: Non-Formulary Medication 1 Each (Zolpidem Tartrate 10 MG Tablet) PO PRN (16:51)
[2023-10-05] MEDS: Acetaminophen 325 MG Tab PO PRN (17:19)
[2023-10-05] MEDS ORDERED: Omeprazole 20 MG Cap.CR PO PRN (18:22)
[2023-10-05] MEDS ORDERED: Furosemide 20 MG/2 ML VIAL IVPUSH SCH (21:00)
[2023-10-05] MEDS: Apixaban 5 MG Tab PO ONE (21:57)
[2023-10-06] MEDS: Metoprolol Tartrate 50 MG Tab PO SCH ×2 (01:49→02:07)
[2023-10-06] MEDS: atorvaSTATin 20 MG Tab PO SCH ×2 (01:49→02:08)
[2023-10-06] MEDS: Diltiazem IR 60 MG Tab PO SCH ×2 (01:50→02:07)
[2023-10-06] MEDS: Levothyroxine 100 MCG Tab PO SCH (06:40)
[2023-10-06] MEDS: Furosemide 20 MG/2 ML VIAL IVPUSH SCH (07:48)
[2023-10-06 08:21] LABS: BASOPHILS ABSOLUTE AUTO 0.05 K/uL (0.00-0.20); BASOPHILS PERCENT AUTO 0.8 % (0.0-1.0); EOSINOPHILS ABSOLUTE AUTO 0.07 K/uL (0.00-0.45); EOSINOPHILS PERCENT AUTO 1.1 % (0.0-6.0); HEMATOCRIT 31.8 % (37.0-47.0); IMMATURE GRAN ABSOLUTE AUTO 0.01 K/uL (0.00-0.05); IMMATURE GRAN PERCENT AUTO 0.2 % (0.0-0.4); LYMPHOCYTES ABSOLUTE AUTO 1.11 K/uL (1.00-4.80); LYMPHOCYTES PERCENT AUTO 17.2 % (24.0-44.0); MEAN CORPUSCULAR HEMOGLOBIN 29.5 pg (28.0-32.0); MEAN CORPUSCULAR HGB CONC 31.4 g/dL (32.0-36.0); MEAN CORPUSCULAR VOLUME 93.8 fL (83.0-99.0); MEAN PLATELET VOLUME 10.9 fL (9.4-12.3); MONOCYTES ABSOLUTE AUTO 0.62 K/uL (0.00-0.80); MONOCYTES PERCENT AUTO 9.6 % (0.0-8.0); NEUTROPHILS ABSOLUTE AUTO 4.58 K/uL (1.80-7.70); NEUTROPHILS PERCENT AUTO 71.1 % (41.0-71.0); PLATELET COUNT,PLT 150 K/uL (150-400); RED BLOOD CELL COUNT 3.39 M/uL (4.10-5.30); WHITE BLOOD CELL COUNT,WBC 6.44 K/uL (3.9-11.3)
[2023-10-06 08:29] LABS: CALCIUM 8.1 mg/dL (8.5-10.1); CARBON DIOXIDE,CO2 32.1 mmol/L (21.0-32.0); CREATININE 1.7 mg/dL (0.6-1.0); EST CRCL DRUG DOSING (CG) 21.83 mL/min; POTASSIUM,K 4.5 mmol/L (3.5-5.1)
[2023-10-06] MEDS ORDERED: Non-Formulary Medication 1 Each (Zinc [Zinc] 50 MG Tablet) PO SCH (09:00)
[2023-10-06] MEDS: Apixaban 5 MG Tab PO SCH (09:03)
[2023-10-06] MEDS: Potassium Chloride 10 MEQ Tab.ER PO SCH (09:03)
[2023-10-06] MEDS: Acidophilus with Citrus Pectin/L.acidophilus Tab PO SCH (09:57)
[2023-10-06] MEDS: Calcium Carbonate/Vitamin D3 1500 MG-400 Units Tab PO SCH (09:58)
[2023-10-06] MEDS: Cholecalciferol (Vitamin D3) 25 MCG Tab PO SCH (09:58)
[2023-10-06] MEDS: Multivitamin Tab PO SCH (09:58)
[2023-10-06] MEDS: Empagliflozin 10 MG Tab PO SCH (09:59)
[2023-10-06] MEDS: Magnesium Oxide 400 MG Tab PO SCH (09:59)
[2023-10-06] MEDS: Melatonin 3 MG Tab PO PRN (23:45)
[2023-10-07 05:47] LABS: BASOPHILS ABSOLUTE AUTO 0.04 K/uL (0.00-0.20); BASOPHILS PERCENT AUTO 0.6 % (0.0-1.0); HEMATOCRIT 29.1 % (37.0-47.0); HEMOGLOBIN 9.2 g/dL (12.0-16.0); IMMATURE GRAN ABSOLUTE AUTO 0.02 K/uL (0.00-0.05); IMMATURE GRAN PERCENT AUTO 0.3 % (0.0-0.4); LYMPHOCYTES ABSOLUTE AUTO 1.14 K/uL (1.00-4.80); LYMPHOCYTES PERCENT AUTO 17.3 % (24.0-44.0); MEAN CORPUSCULAR HEMOGLOBIN 29.5 pg (28.0-32.0); MEAN CORPUSCULAR HGB CONC 31.6 g/dL (32.0-36.0); MEAN CORPUSCULAR VOLUME 93.3 fL (83.0-99.0); MEAN PLATELET VOLUME 10.9 fL (9.4-12.3); MONOCYTES ABSOLUTE AUTO 0.72 K/uL (0.00-0.80); MONOCYTES PERCENT AUTO 10.9 % (0.0-8.0); NEUTROPHILS ABSOLUTE AUTO 4.47 K/uL (1.80-7.70); NEUTROPHILS PERCENT AUTO 67.9 % (41.0-71.0); PLATELET COUNT,PLT 146 K/uL (150-400); RED BLOOD CELL COUNT 3.12 M/uL (4.10-5.30); WHITE BLOOD CELL COUNT,WBC 6.59 K/uL (3.9-11.3)
[2023-10-07 06:19] LABS: A/G RATIO 0.7 (0.9-1.6); ALBUMIN 2.5 g/dL (3.4-5.0); BILIRUBIN TOTAL 0.7 mg/dL (0.2-1.0); CALCIUM 8.4 mg/dL (8.5-10.1); CARBON DIOXIDE,CO2 30.9 mmol/L (21.0-32.0); CREATININE 1.5 mg/dL (0.6-1.0); EST CRCL DRUG DOSING (CG) 24.74 mL/min; POTASSIUM,K 4.2 mmol/L (3.5-5.1)
[2023-10-07 08:37] VITALS: PULSE 79
[2023-10-07] MEDS: Apixaban 2.5 MG Tab PO SCH (08:51)
[2023-10-07 11:37] VITALS: BP 145/60
== END 2023-10-07 12:55 | DRG 291 ==
LOC: MW.ED 09:52 → MW.MS 14:46
PROVIDERS: ADMIT Family Medicine; ATTEND Family Medicine
DX: I11.0 Hypertensive heart disease with heart failure (principal); I50.23 Acute on chronic systolic (congestive) heart failure; I48.19 Other persistent atrial fibrillation; I50.9 Heart failure, unspecified; Z23 Encounter for immunization; N17.9 Acute kidney failure, unspecified; M25.552 Pain in left hip; E03.9 Hypothyroidism, unspecified; E78.00 Pure hypercholesterolemia, unspecified; K21.9 Gastro-esophageal reflux disease without esophagitis; Z79.890 Hormone replacement therapy; M54.9 Dorsalgia, unspecified; G89.29 Other chronic pain; E89.0 Postprocedural hypothyroidism; S05.12XA Contusion of eyeball and orbital tissues, left eye, initial encounter; Z66 Do not resuscitate; I08.3 Combined rheumatic disorders of mitral, aortic and tricuspid valves; Z88.8 Allergy status to other drugs, medicaments and biological substances; Z79.899 Other long term (current) drug therapy; Z79.01 Long term (current) use of anticoagulants; Z90.89 Acquired absence of other organs; Z98.49 Cataract extraction status, unspecified eye; Z98.890 Other specified postprocedural states; Z90.49 Acquired absence of other specified parts of digestive tract; Z90.710 Acquired absence of both cervix and uterus; Z90.722 Acquired absence of ovaries, bilateral; Z90.79 Acquired absence of other genital organ(s); W19.XXXA Unspecified fall, initial encounter
CPT/HCPCS: 36415; 70450; 70486; 71045; 71260; 72125; 74177; 80053; 81001; 82550; 83605; 83690; 83735; 83880; 84439; 84443; 84484; 85025; 85610; 93005; J1940; Q9967; U0002; 80048; 90715; 93010; 93306; 96374; 99223; 99233; 99239; 99285; 99285-25; A9270-GY

== ENCOUNTER 2023-10-18 14:20 | Emergency (ER) | payer MEDICARE, BC | END 2023-10-18 15:01 | disposition left against medical advice (07) | LOC: MW.ED 14:20 | DX: Z53.21 Procedure and treatment not carried out due to patient leaving prior to being seen by health care provider (principal) ==

== ENCOUNTER 2023-11-18 10:29 | Emergency (ER) | payer MEDICARE, BC ==
[2023-11-18 11:37] VITALS: BP 129/69; PULSE 84
== END 2023-11-18 11:37 | disposition home or self-care (01) ==
LOC: MW.ED 10:29
DX: L03.115 Cellulitis of right lower limb (principal); L03.116 Cellulitis of left lower limb; I10 Essential (primary) hypertension; I48.91 Unspecified atrial fibrillation; E78.00 Pure hypercholesterolemia, unspecified; K21.9 Gastro-esophageal reflux disease without esophagitis; E03.9 Hypothyroidism, unspecified; Z90.49 Acquired absence of other specified parts of digestive tract; Z90.710 Acquired absence of both cervix and uterus; Z87.891 Personal history of nicotine dependence; Z79.899 Other long term (current) drug therapy; Z79.01 Long term (current) use of anticoagulants; Z79.890 Hormone replacement therapy; Z88.8 Allergy status to other drugs, medicaments and biological substances; Z75.8 Other problems related to medical facilities and other health care
CPT/HCPCS: 99283

== ENCOUNTER 2023-12-05 17:57 | Emergency (ER) | payer MEDICARE, BC ==
[2023-12-05] MEDS: Ondansetron 4 MG/2 ML SDV IVPUSH STA (18:16)
[2023-12-05 18:25] LABS: BASOPHILS ABSOLUTE AUTO 0.04 K/uL (0.00-0.20); BASOPHILS PERCENT AUTO 0.6 % (0.0-1.0); EOSINOPHILS ABSOLUTE AUTO 0.03 K/uL (0.00-0.45); EOSINOPHILS PERCENT AUTO 0.5 % (0.0-6.0); HEMATOCRIT 35.1 % (37.0-47.0); HEMOGLOBIN 10.4 g/dL (12.0-16.0); IMMATURE GRAN ABSOLUTE AUTO 0.01 K/uL (0.00-0.05); IMMATURE GRAN PERCENT AUTO 0.2 % (0.0-0.4); LYMPHOCYTES ABSOLUTE AUTO 1.62 K/uL (1.00-4.80); MEAN CORPUSCULAR HEMOGLOBIN 24.8 pg (28.0-32.0); MEAN CORPUSCULAR HGB CONC 29.6 g/dL (32.0-36.0); MEAN CORPUSCULAR VOLUME 83.6 fL (83.0-99.0); MEAN PLATELET VOLUME 10.3 fL (9.4-12.3); MONOCYTES ABSOLUTE AUTO 0.49 K/uL (0.00-0.80); MONOCYTES PERCENT AUTO 7.6 % (0.0-8.0); NEUTROPHILS ABSOLUTE AUTO 4.29 K/uL (1.80-7.70); NEUTROPHILS PERCENT AUTO 66.1 % (41.0-71.0); PLATELET COUNT,PLT 178 K/uL (150-400); WHITE BLOOD CELL COUNT,WBC 6.48 K/uL (3.9-11.3)
[2023-12-05 18:45] LABS: INR 1.23 (0.86-1.11)
[2023-12-05 19:02] LABS: A/G RATIO 0.7 (0.9-1.6); BILIRUBIN TOTAL 0.9 mg/dL (0.2-1.0); CALCIUM 8.7 mg/dL (8.5-10.1); CARBON DIOXIDE,CO2 34.3 mmol/L (21.0-32.0); CORONAVIRUS COVID-19 NAA NEGATIVE (NEGATIVE); CREATININE 1.6 mg/dL (0.6-1.0); EST CRCL DRUG DOSING (CG) 23.19 mL/min; INFLUENZA A NAA NEGATIVE (NEGATIVE); INFLUENZA B NAA NEGATIVE (NEGATIVE); POTASSIUM,K 3.8 mmol/L (3.5-5.1); PROTEIN TOTAL,TP 7.3 g/dL (6.4-8.2)
[2023-12-05 19:07] LABS: MAGNESIUM 1.9 mg/dL (1.8-2.4)
[2023-12-05 19:30] LABS: TSH ULTRASENSITIVE 16.2 uIU/mL (0.36-3.74)
[2023-12-05] MEDS ORDERED: FACTOR IX COMPLEX HUMAN IV ONE (19:45)
[2023-12-05] MEDS ORDERED: [UNRECOGNIZED DRUG - OTHER] IV ONE (19:45)
[2023-12-05] MEDS ORDERED: HUM PROTHROMBIN CPLX 2000 UNIT IV ONE (19:45)
[2023-12-05 19:50] LABS: T4 FREE 1.24 ng/dL (0.76-1.46)
[2023-12-05] MEDS: Labetalol 100 MG/20 ML MDV IVPUSH STA (20:26)
[2023-12-05] MEDS: Prochlorperazine 10 MG/2 ML SDV IVPUSH STA (20:27)
[2023-12-05] MEDS: diphenhydrAMINE 50 MG/ML SDV IVPUSH STA (20:27)
[2023-12-05] MEDS: STERILE INJECT ONE (20:36)
[2023-12-05] MEDS: WATER FOR INJECTION INJECT ONE (20:36)
[2023-12-05] MEDS: [UNRECOGNIZED DRUG - OTHER] INJECT ONE (20:36)
[2023-12-05] MEDS: HUM PROTHROMBIN CPLX INJECT ONE (20:36)
[2023-12-05 22:15] VITALS: BP 155/66; PULSE 78
== END 2023-12-05 22:16 ==
LOC: MW.ED 17:57
DX: I62.9 Nontraumatic intracranial hemorrhage, unspecified (principal); I13.0 Hypertensive heart and chronic kidney disease with heart failure and stage 1 through stage 4 chronic kidney disease, or unspecified chronic kidney disease; I50.20 Unspecified systolic (congestive) heart failure; N18.9 Chronic kidney disease, unspecified; I48.91 Unspecified atrial fibrillation; K21.9 Gastro-esophageal reflux disease without esophagitis; E03.9 Hypothyroidism, unspecified; Z90.710 Acquired absence of both cervix and uterus; Z90.49 Acquired absence of other specified parts of digestive tract; Z79.890 Hormone replacement therapy; Z79.01 Long term (current) use of anticoagulants; Z79.899 Other long term (current) drug therapy; Z88.8 Allergy status to other drugs, medicaments and biological substances; Z75.8 Other problems related to medical facilities and other health care
CPT/HCPCS: 0240U; 36415; 70450; 71045; 80053; 83690; 83735; 83880; 84439; 84443; 84484; 85025; 85610; 93005; 96374; 96375; 99285; J0780; J1200; J1921; J2405; J7168; 93010; 99291; J3490